=== PATIENT | female | born 1950 | race American Indian/Alaskan Native ===

== ENCOUNTER 2016-09-10 06:48 | Inpatient (IN) | payer BC, MEDICARE ==
[2016-09-10] MEDS ORDERED: NACL 0.9% 1000 ML 1,000 ML ONE ×2 (07:39→15:30)
[2016-09-10] MEDS ORDERED: NACL 0.9% 1000 ML 1,000 ML IV SCH ×2 (08:00→11:30)
[2016-09-10] MEDS ORDERED: NACL 0.9% 500 ML 500 ML IV SCH (08:00)
[2016-09-10] MEDS ORDERED: HEPARIN/NS 5000 UNIT/500ML(CATH LAB) 1,000 ML IR ONE (09:24)
[2016-09-10] MEDS ORDERED: HEPARIN/NS 5000 UNIT/500ML(CATH LAB) 500 ML IR ONE (09:27)
[2016-09-10] MEDS ORDERED: NITROGLYCERIN SYRINGE 3 ML ONE (09:27)
[2016-09-10] MEDS: XYLOCAINE 2% INFILTRATI ONE ×2 (09:33→09:36)
[2016-09-10] MEDS: VERSED ONE ×2 (09:34→09:38)
[2016-09-10] MEDS: SUBLIMAZE ONE ×2 (09:34→09:37)
[2016-09-10] MEDS ORDERED: VERSED ONE (09:40)
[2016-09-10] MEDS ORDERED: SUBLIMAZE ONE (09:40)
[2016-09-10] MEDS: HEPARIN 10,000 UNITS/10 ML ONE ×2 (09:50→10:07)
[2016-09-10] MEDS ORDERED: PLAVIX PO ONE ×4 (11:31→14:31)
[2016-09-10] MEDS ORDERED: MORPHINE IV ONE (11:35)
[2016-09-10] MEDS ORDERED: MORPHINE ONE (11:36)
--- NOTE | 2016-09-10 11:58 | Short Stay Summary ---
Short Stay Documentation Date of service: 09/10/16 - History H&P: obtained from office - Allergies and Medications Current Medications: Allergies No Known Allergies Allergy (Verified 08/11/16 06:45) Home Medications Medication Instructions Recorded Confirmed Last Taken Type Aspirin EC [Aspirin Enteric Coated 81 mg PO DAILY 08/11/16 09/10/16 09/09/16 History TAB] AtorvaSTATin [Lipitor] 40 mg PO HS 08/11/16 09/10/16 09/09/16 History Clopidogrel Bisulfate [Clopidogrel] 75 mg PO DAILY 08/11/16 09/10/16 09/09/16 History Lisinopril/Hydrochlorothiazide 1 tab PO DAILY 08/11/16 09/10/16 09/09/16 History [Lisinopril-Hctz 20-25 mg Tab] Active Medications Aspirin (Halfprin Ec) 81 mg PO DAILY BAR Atorvastatin Calcium (Lipitor) 40 mg PO HS BAR Clopidogrel Bisulfate (Plavix) 75 mg PO DAILY BAR Sodium Chloride (Nacl 0.9% 1000 Ml) 1,000 mls @ 100 mls/hr IV DIRECT BAR Stop: 09/10/16 19:59 Ondansetron HCl (Zofran) 4 mg IV Q8H PRN PRN Reason: N/V unrelieved by Reglan Tramadol HCl (Ultram) 50 mg PO Q4H PRN PRN Reason: Pain, Mild (1-3) - Brief post op/procedure progress note Date of procedure: 09/10/16 Pre-op diagnosis: PVD with claudication - Hospital course Hospital course: The patient is a 66 year old female with known PAD who underwent bilateral common iliac stenting on 08/11/16. Following that procedure, she had improvement in pain in her right leg but still had discomfort in her left leg. She presented on 09/10/16 and underwent peripheral angiogram and GENERAL REPAIRER of the left external iliac by Dr. Conner. She was monitored on telemetry overnight and will be discharged home on 09/11/16 in stable condition. Follow up appointment with Dr. Conner in the [place] office on 09/27/16 at 2:30 pm. - Disposition Condition at discharge: Stable - Discharge Diagnoses (1) PVD (peripheral vascular disease) with claudication Status: Chronic (2) Hyperlipidemia Status: Chronic (3) Hypertension Status: Chronic (4) Tobacco abuse Status: Chronic Short Stay Discharge Plan Activity: advance as tolerated Weight Bearing Status: Weight Bear as Tolerated Diet: low fat, low cholesterol Wound: keep clean and dry Follow up with: PRIMARY CARE, [Primary Care Provider] - 7 Days FAREED CONNER MD [Staff Physician] - 09/27/16 2:30 pm
[2016-09-10] MEDS ORDERED: ZOFRAN ONE (12:49)
[2016-09-10] MEDS: ZOFRAN IV PRN (12:51)
[2016-09-10] MEDS ORDERED: PLAVIX ONE (14:09)
[2016-09-10] MEDS: PLAVIX ONE ×2 (14:35→17:27)
[2016-09-10] MEDS ORDERED: ULTRAM ONE (16:04)
[2016-09-10] MEDS: ULTRAM PO PRN ×2 (16:09→20:29)
--- NOTE | 2016-09-10 16:59 | Cardiac Catherization Report ---
PROCEDURE: Peripheral angiogram of the iliac and SFA and the distal popliteal third-order injection with intervention of the left external iliac, left INJECTION MOLDING ENGINEER, left SFA. HISTORY: This is a 66-year-old -[place] female with hypertension, cholesterol, smoker, who had bilateral common iliac stents done 3 weeks ago presents for followup having left leg pain. On exam, she has decreased pulse on the left common femoral, left groin, and right leg feels much better. 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 1. Procedure was performed via the right common femoral artery, sterile technique, local anesthesia, 5-Vincentian groin sheath inserted, rim catheter was placed across the left common iliac artery. An angiogram was done which showed left common iliac stent patent, left internal iliac diffusely diseased, left external 99%, dissection planes were noted with sluggish flow in the SFA. 2. Then, we used an advantage wire at the SFA and then removed the 5-Vincentian vertebral and 5-Vincentian groin sheath and placed a 7-Vincentian Destination sheath from the right common femoral artery to the left common iliac artery. 3. With the wire retained to increase the flow and there was a dissection plane noted, ballooned common femoral artery and SFA with a 4.0 x 80 balloon and then ballooned that further with a drug-eluting balloon from the common femoral artery to the proximal SFA with a 4.0 x 100. There was a dissection plane, but it was non-flow limiting. There was a small dissection in the profunda that is not flow limiting also. 4. Stented external iliac had a proximal 80% lesion and dissection plane was noted. So using a self-expanding Prot?g? 8.0 x 100 and post-dilated with a 7.0 x 60 x 2 inflations. Excellent angiographic result. No dissection noted. Increased flow, but after removing the SFA wire, there was sluggish flow in the SFA. Rewire the SFA and stented diffusely diseased SFA of 50% to 60% and 80% with a focal area of 90% with a 6.0 x 200 and post-dilated with a 5.0 x 60 x 6 inflations. 5. Repeat angiogram showed excellent angiographic results with good stent appostion of the external iliac, mild dissection in the profunda non flow limiting, no dissection in the INJECTION MOLDING ENGINEER, proximal SFA to distal SFA was well stented with a popliteal patent, anterior tibial patent, peroneal patent, but PTU with diffuse disease. No embolization noted. 6. A 7-Vincentian sheath was removed over a guidewire. A 7-Vincentian short sheath groin sheath was sewn in. There was a small hematoma that was pressed out. SUMMARY: 1. Bilateral common iliac stents patent. 2. Left external iliac 8.0 x 100 self expanding stent protege and post-dilated x 7.0, left INJECTION MOLDING ENGINEER and proximal SFA drug-coated balloon 4.0 x 100. There was a small dissection non flow limiting in the profunda. 3. self expanding protege stent in the proximal to distal SFA with a 6.0 x 200 post-dilated with 5.0 with two-vessel runoff. 4. The patient has a palpable pulse at the end of the case. 5. Post-FORESTRY FARM LABORER treatment and continue IV hydration for renal insufficiency. JOB# [id number] ANA/CASA AMBROCIO
[2016-09-11] MEDS: ULTRAM PO PRN ×2 (05:11→10:14)
[2016-09-11] MEDS: ZOFRAN IV PRN (05:11)
[2016-09-11 07:59] LABS: Basophils % (Auto) 0.3 % (0.0-1.8); Hematocrit 26.8 % (30.3-42.9); Hemoglobin 8.8 gm/dl (10.1-14.3); Mean Corpuscular HGB Conc 33 % (30-34); Mean Corpuscular Hemoglobin 31 pg (28-32); Mean Corpuscular Volume 94 fl (79-97); Platelet Count 243 K/mm3 (140-440); Red Blood Count 2.85 M/mm3 (3.65-5.03); Red Cell Distribution Width 13.7 % (13.2-15.2); White Blood Count 11.2 K/mm3 (4.5-11.0)
[2016-09-11 08:26] LABS: Anion Gap 18 mmol/L; BUN/Creatinine Ratio 22.72; Blood Urea Nitrogen 25 mg/dL (7-17); Calcium 8.8 mg/dL (8.4-10.2); Carbon Dioxide 22 mmol/L (22-30); Chloride 103.5 mmol/L (98-107); Glucose 127 mg/dL (65-100); Potassium 4.2 mmol/L (3.6-5.0); Sodium 139 mmol/L (137-145)
--- NOTE | 2016-09-11 09:45 | Admit Criteria Form ---
[id number] TELEMETRY CARE Telemetry Admission Guidelines (Place 'X' for any and all applicable criteria): Admission to telemetry [A] may be indicated for ANY ONE of the following(1)(2)(3 )(4)(5): [ ]I. Cardiac disease, including ANY ONE of the following (9)(10)(11)(12)(13 ): [ ]a) Postacute IA [ ]b) Low-risk patients with ST-segment elevation IA who have undergone successful percutaneous coronary intervention [ ]c) Unstable angina [ ]d) Suspected IA (until it is ruled out) [ ]e) Post cardiac surgery (first 48 to 72 hours unless complications occur) [ ]f) Acute arrhythmias (including significant tachycardia or bradycardia) [B] [ ]g) Firing of an implantable cardioverter defibrillator [C] [ ]h) Suspected pacemaker or implantable cardioverter defibrillator malfunction (10) [ ]i) New administration or adjustment of an antiarrhythmic drug [D ] [ ]j) Child admitted for acute congestive heart failure [ ]j) Long QT syndrome [ ]k) Advanced heart block (eg, second-degree Mobitz type II, third- degree heart block) [ ]l) Acute myocarditis or pericarditis [ ]m) Short-term (ambulatory or inpatient) monitoring after a cardiac procedure as indicated by ANY ONE of the following [E]: [ ]i) Electrophysiologic studies [ ]ii) Percutaneous coronary intervention with stent placement [ ]iii) Pacemaker placement with cardiac conduction defect [ ]iv) Implantable cardiac defibrillator placement [ ]II. Drug overdose or poisoning with substance that causes arrhythmias or QT prolongation (eg, phenothiazines, sympathomimetic agents, cyclic antidepressants, digitalis, antiarrhythmic drugs)(15) [X ]III. Short-term (ambulatory or inpatient) monitoring after therapeutic or diagnostic procedure requiring conscious sedation or anesthesia (eg, endoscopy, elective cardioversion) [ ]IV. Acute cerebrovascular even[F](18) [ ]V. Massive blood transfusion (eg, at least 10 units of packed red blood cells in 24 hours) [ ]. Variceal bleeding after endoscopy, sclerotherapy, or IV vasopressin [ ]VII. Uncorrected electrolyte abnormalities associated with an increased risk of dangerous arrhythmia [G]; examples include [ ]a) Hyperkalemia with attributable ECG changes [ ]b) Potassium greater than 6.5 mmol/L (mEq/L) in a patient without history of chronic renal disease [ ]c) Prolonged QT attributed to hypokalemia, hypomagnesemia, or hypocalcemia [ ]VIII.Unexplained syncope or other neurologic event suspected of being due to arrhythmia due to a finding that increases risk; examples include(19)(20)(21): [ ]a) High-risk ECG findings (eg, bifascicular block, bradycardia, abnormal QT interval, ventricular pre- excitation) [ ]b) History of previous syncope due to arrhythmia [ ]c) Abnormal ventricular function (eg, reduced ejection fraction ) [ ]d) Exertional or supine syncope [ ]e) Concerning syncope characteristics (eg, sudden loss of consciousness without prodrome) [ ]f) Family history of sudden [ ]g) Use of arrhythmogenic medication [ ]h) Suspected cardiac ischemia [ ]i) Known channelopathy (eg, long QT syndrome, Brugada syndrome, or catecholaminergic paroxysmal ventricular tachycardia) [ ]j) Known structural heart disease (eg, hypertrophic cardiomyopathy , severe valvular disease) [ ]k) Palpitations preceding syncope The original [employer] content created by [employer] has been revised. The portions of the content which have been revised are identified through the use of italic text or in bold, and [facility] has neither reviewed nor approved the modified material. All other unmodified content is copyright [employer]. Please see references footnoted in the original [employer] edition 2016 Admission Criteria Met: Yes <FAREED MAHARAJ Last Filed: 09/12/16 09:11> Admission Criteria Met: Yes
[2016-09-11] MEDS ORDERED: HALFPRIN EC PO SCH (10:00)
[2016-09-11] MEDS ORDERED: PLAVIX PO SCH (10:00)
[2016-09-11 10:06] VITALS: BP 120/79
--- NOTE | 2016-09-11 11:29 | Progress Note ---
Assessment and Plan Patient had CONVENTION PLANNER of the left external iliac to left SFA at see if they patient small hematoma was able pressed out resolved patient had renal sufficiency with IV hydration that resolved patient resulted in anemia hemodilution post procedure patient will hold BP medication at this time will continue aspirin Plavix statin smoking cessation was counseled again and patient will take iron tablets to increase hemoglobin patient follow-up in the office next week patient denies any left leg pain or groin pain no dizziness shortness of breath discussed this in detail with the patient patient's - Patient Problems (1) Tobacco abuse Current Visit: Yes Status: Chronic (2) Hyperlipidemia Current Visit: No Status: Chronic (3) Hypertension Current Visit: No Status: Chronic (4) PVD (peripheral vascular disease) with claudication Current Visit: No Status: Chronic (5) Anemia Current Visit: Yes Status: Chronic Qualifiers: Anemia type: iron deficiency Subjective Date of service: 09/11/16 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 Interval history: pt has no lighheadedness or dizziness and mild groin pain Objective Vital Signs Temp Pulse Pulse Pulse Resp Resp BP 09/11/16 09:00 105 H 09/11/16 08:00 97.6 F 117 H 16 09/11/16 05:48 98 F 116 H 20 09/11/16 05:11 20 09/11/16 00:41 97.6 F 107 H 21 09/10/16 22:00 80 18 09/10/16 21:29 18 09/10/16 20:41 97.9 F 99 H 20 09/10/16 20:29 18 09/10/16 20:23 18 09/10/16 19:44 98 H 09/10/16 17:00 101 H 09/10/16 16:00 101 H 18 164/84 09/10/16 15:45 101 H 18 154/79 09/10/16 15:30 98 F 98 H 17 146/80 09/10/16 15:05 92 H 15 132/73 09/10/16 15:00 96 H 16 98/69 09/10/16 14:55 96 H 16 98/69 09/10/16 14:50 100 H 22 96/56 09/10/16 14:49 99 H 20 80/47 09/10/16 14:45 108 H 20 100/58 09/10/16 14:40 100 H 20 152/85 09/10/16 14:30 100 H 20 152/85 09/10/16 14:15 98 H 15 09/10/16 14:00 103 H 18 124/72 09/10/16 13:45 100 H 20 138/81 09/10/16 13:15 104 H 20 136/89 09/10/16 12:45 100 H 12 173/99 09/10/16 12:30 103 H 14 132/78 09/10/16 12:11 20 09/10/16 12:00 103 H 14 167/88 09/10/16 11:45 100 H 16 167/88 09/10/16 11:41 18 09/10/16 11:30 90 18 157/92 BP Pulse Ox 09/11/16 09:00 09/11/16 08:00 120/79 99 09/11/16 05:48 132/75 95 09/11/16 05:11 09/11/16 00:41 154/82 100 09/10/16 22:00 09/10/16 21:29 09/10/16 20:41 153/77 94 09/10/16 20:29 09/10/16 20:23 09/10/16 19:44 09/10/16 17:00 09/10/16 16:00 99 09/10/16 15:45 100 09/10/16 15:30 100 09/10/16 15:05 100 09/10/16 15:00 100 09/10/16 14:55 100 09/10/16 14:50 100 09/10/16 14:49 100 09/10/16 14:45 100 09/10/16 14:40 98 09/10/16 14:30 98 09/10/16 14:15 100 09/10/16 14:00 100 09/10/16 13:45 98 09/10/16 13:15 99 09/10/16 12:45 100 09/10/16 12:30 98 09/10/16 12:11 09/10/16 12:00 97 09/10/16 11:45 100 09/10/16 11:41 09/10/16 11:30 97 - Physical Examination General: Appears Well, No Apparent Distress HEENT: Positive: PERRL Neck: Positive: neck supple Cardiac: Positive: Reg Rate and Rhythm Lungs: Positive: clear to auscultation Neuro: Positive: Grossly Intact Abdomen: Positive: Soft /Rectal: Normal Prostate, No Masses Skin: Incision: Cardiac Cath Site (no hematoma mild bruising) Musculoskeletal: No Fluid Collection, No Pain, Normal Range of Motion Gait: Normal Gait Extremities: - Labs and Meds CBC 09/11/16 Range/Units 07:15 WBC 11.2 H (4.5-11.0) K/mm3 RBC 2.85 L (3.65-5.03) M/mm3 Hgb 8.8 L (10.1-14.3) gm/dl Hct 26.8 L (30.3-42.9) % Plt Count 243 (140-440) K/mm3 Lymph # 1.7 (1.2-5.4) K/mm3 Whitman # 0.9 H (0.0-0.8) K/mm3 Eos # 0.0 (0.0-0.4) K/mm3 Baso # 0.0 (0.0-0.1) K/mm3 Comprehensive Metabolic Panel 09/11/16 Range/Units 07:15 Sodium 139 (137-145) mmol/L Potassium 4.2 (3.6-5.0) mmol/L Chloride 103.5 (98-107) mmol/L Carbon Dioxide 22 (22-30) mmol/L BUN 25 H (7-17) mg/dL Creatinine 1.1 (0.7-1.2) mg/dL Glucose 127 H (65-100) mg/dL Calcium 8.8 (8.4-10.2) mg/dL - Telemetry EKG Rhythm: Sinus Rhythm
[2016-09-11] MEDS ORDERED: PLAVIX PO ONE (14:31)
== END 2016-09-11 12:41 | disposition home or self-care (01) | DRG 253 ==
LOC: OPU 06:48 → 4A 11:28
PROVIDERS: ADMIT Internal Medicine; ATTEND Internal Medicine
PROC: 047L3Z1 Dilation of Left Femoral Artery using Drug-Coated Balloon, Percutaneous Approach (ICD-10-PCS; principal; 2016-09-10)
PROC: B41G1ZZ Fluoroscopy of Left Lower Extremity Arteries using Low Osmolar Contrast (ICD-10-PCS; 2016-09-10)
DX: I73.9 Peripheral vascular disease, unspecified (principal); R71.0 Precipitous drop in hematocrit; E78.5 Hyperlipidemia, unspecified; N28.9 Disorder of kidney and ureter, unspecified; I10 Essential (primary) hypertension; F17.200 Nicotine dependence, unspecified, uncomplicated; Z71.6 Tobacco abuse counseling
CPT/HCPCS: 36415; 37221; 37226; 75710; 80048; 85025; 85347; 85730; 96360; 96361; 96374; 96375; A9270-GY; C1725; C1769; C1876; C1887; C2623; J1644; J2250; J2270; J2405; J3010; J7030; Q9967

== ENCOUNTER 2016-11-07 07:52 | Inpatient (IN) | payer MEDICARE, OTHER ==
[2016-11-07 08:54] LABS: BUN/Creatinine Ratio 13.33; Calcium 8.7 mg/dL (8.4-10.2); Chloride 110.9 mmol/L (98-107); Potassium 3.4 mmol/L (3.6-5.0)
[2016-11-07 09:07] LABS: Basophils % (Auto) 0.5 % (0.0-1.8); Eosinophils % (Auto) 0.7 % (0.0-4.3); Hematocrit 20.2 % (30.3-42.9); Hemoglobin 6.6 gm/dl (10.1-14.3); Mean Corpuscular HGB Conc 33 % (30-34); Mean Corpuscular Hemoglobin 30 pg (28-32); Mean Corpuscular Volume 93 fl (79-97); Platelet Count 343 K/mm3 (140-440); Red Blood Count 2.17 M/mm3 (3.65-5.03); White Blood Count 9.1 K/mm3 (4.5-11.0)
--- NOTE | 2016-11-07 09:37 | Emergency Department Report ---
ED Chest Pain HPI - General Chief Complaint: Chest Pain Stated Complaint: CHEST PAIN Time Seen by Provider: 11/07/16 09:35 Source: patient Mode of arrival: Ambulatory Limitations: No Limitations - History of Present Illness Initial Comments: She states for the last at least one week she has developed discomfort in her chest which occurs categorically about 10 minutes after eating. The pain is in the subxiphoid area. We occurs when she eats. It is nonexertional and nonpleuritic. Patient states that she is had no prior workup for coronary artery disease. She's never had an endoscopy. She does have a history of prior angioplasty for peripheral vascular disease in her legs. She is having no chest pain at the current time. MD Complaint: chest pain -: week(s) Onset: after eating Pain Location: substernal Pain Radiation: none Severity: moderate Quality: dull Consistency: now resolved Improves With: nothing Worsens With: eating re: denies: nausea, vomting, diaphoresis, dyspnea, sense of impending doom Other Symptoms: denies: cough, fever, syncope - Related Data Home Medications Medication Instructions Recorded Confirmed Last Taken Aspirin EC [Aspirin Enteric Coated 81 mg PO DAILY 08/11/16 11/07/16 09/09/16 TAB] AtorvaSTATin [Lipitor] 40 mg PO HS 08/11/16 11/07/16 09/09/16 Clopidogrel Bisulfate [Clopidogrel] 75 mg PO DAILY 08/11/16 11/07/16 09/09/16 Allergies Allergy/AdvReac Type Severity Reaction Status Date / Time No Known Allergies Allergy Verified 08/11/16 06:45 RITU score - Ritu Score Age > 65: (0) No Aspirin use within the Past 7 Days: (0) No 3 or more CAD Risk Factors: (1) Yes 2 or more Angina events in past 24 hrs: (0) No Known CAD with more than 50% Stenosis: (0) No Elevated Cardiac Markers: (0) No ST Deviation Greater than 0.5mm: (0) No RITU Score: 1 ED Review of Systems ROS: Stated complaint: CHEST PAIN Other details as noted in HPI Constitutional: weakness. denies: chills, fever Eyes: denies: eye pain, eye discharge, vision change ENT: denies: ear pain, throat pain Respiratory: SOB with exertion. denies: cough, shortness of breath, wheezing Cardiovascular: as per HPI, chest pain. denies: palpitations Endocrine: no symptoms reported Gastrointestinal: as per HPI. denies: abdominal pain, nausea, diarrhea Genitourinary: denies: urgency, dysuria, discharge Musculoskeletal: denies: back pain, joint swelling, arthralgia Skin: denies: rash, lesions Neurological: denies: headache, weakness, paresthesias Psychiatric: denies: anxiety, depression Hematological/Lymphatic: denies: easy bleeding, easy bruising ED Past Medical Hx - Past Medical History Previous Medical History?: Yes Hx Hypertension: Yes Hx GERD: Yes - Surgical History Past Surgical History?: Yes Additional Surgical History: angioplasty - Social History Smoking Status: Current Every Day Smoker Substance Use Type: None - Medications Home Medications: Home Medications Medication Instructions Recorded Confirmed Last Taken Type Aspirin EC [Aspirin Enteric Coated 81 mg PO DAILY 08/11/16 11/07/16 09/09/16 History TAB] AtorvaSTATin [Lipitor] 40 mg PO HS 08/11/16 11/07/16 09/09/16 History Clopidogrel Bisulfate [Clopidogrel] 75 mg PO DAILY 08/11/16 11/07/16 09/09/16 History ED Physical Exam - General Limitations: No Limitations General appearance: alert, in no apparent distress - Head Head exam: Present: atraumatic, normocephalic. Absent: normal inspection - Eye Eye exam: Present: normal appearance, PERRL, EOMI. Absent: scleral icterus - ENT ENT exam: Present: mucous membranes moist - Neck Neck exam: Present: normal inspection - Respiratory Respiratory exam: Present: normal lung sounds bilaterally. Absent: respiratory distress - Cardiovascular Cardiovascular Exam: Present: regular rate, normal rhythm. Absent: systolic murmur, diastolic murmur, rubs, gallop - GI/Abdominal GI/Abdominal exam: Present: soft, normal bowel sounds. Absent: distended, tenderness, guarding, rebound, rigid - Extremities Exam Extremities exam: Present: normal inspection, full ROM, normal capillary refill. Absent: tenderness, pedal edema, joint swelling, calf tenderness - Back Exam Back exam: Present: normal inspection - Neurological Exam Neurological exam: Present: alert, oriented X3, CN II-XII intact. Absent: motor sensory deficit - Psychiatric Psychiatric exam: Present: normal affect, normal mood - Skin Skin exam: Present: warm, dry, intact, normal color. Absent: rash ED Course Vital Signs 11/07/16 11/07/16 11/07/16 08:04 08:59 09:00 Temperature 97.8 F Pulse Rate 109 H 113 H Respiratory 16 31 H Rate Blood Pressure 131/74 158/74 O2 Sat by Pulse 100 99 Oximetry 11/07/16 11/07/16 11/07/16 09:07 09:11 11:52 Temperature 98.4 F Pulse Rate 105 H 97 H Respiratory 16 10 L 14 Rate Blood Pressure 158/74 107/65 O2 Sat by Pulse 100 100 Oximetry 11/07/16 11/07/16 11/07/16 12:00 12:41 13:05 Temperature 98.3 F 98.4 F 98.4 F Pulse Rate 93 H 87 90 Respiratory 15 13 20 Rate Blood Pressure 134/65 119/48 123/53 O2 Sat by Pulse 97 100 100 Oximetry 11/07/16 11/07/16 13:32 15:00 Temperature 98.4 F 98.4 F Pulse Rate 94 H 95 H Respiratory 16 11 L Rate Blood Pressure 133/53 146/82 O2 Sat by Pulse 100 100 Oximetry - Reevaluation(s) Reevaluation #1: A GI and cardiac consultation was obtained. The patient was transfused. She was admitted by Dr. eMdina to the hospitalist service. Further care per hospitalist service and consultants. She was given Protonix. I avoided anticoagulants considering her GI history and low hemoglobin. 11/07/16 16:38 Reevaluation #2: Patient was transfused 2 units by me. She had no subsequent chest discomfort. 11/07/16 16:39 ED Medical Decision Making - Lab Data Result diagrams: 11/07/16 08:20 11/07/16 08:20 Laboratory Results - last 24 hr 11/07/16 11/07/16 08:20 08:20 WBC 9.1 RBC 2.17 L Hgb 6.6 L Hct 20.2 L MCV 93 MCH 30 MCHC 33 RDW 14.0 Plt Count 343 Lymph % (Auto) 37.2 H Wood[place] % (Auto) 5.8 Eos % (Auto) 0.7 Baso % (Auto) 0.5 Lymph # 3.4 [place] # 0.5 Eos # 0.1 Baso # 0.0 Seg Neutrophils % 55.8 Seg Neutrophils # 5.1 Sodium 145 Potassium 3.4 L Chloride 110.9 H Carbon Dioxide 20 L Anion Gap 18 BUN 16 Creatinine 1.2 Estimated GFR 55 BUN/Creatinine Ratio 13.33 Glucose 102 H Calcium 8.7 Troponin T 0.319 H* Triglycerides 82 Cholesterol 147 LDL Cholesterol Direct 82 HDL Cholesterol 49 Cholesterol/HDL Ratio 3.00 Critical Care Time: Yes Critical care time in (mins) excluding proc time.: 40 Critical care attestation.: If time is entered above; I have spent that time in minutes in the direct care of this critically ill patient, excluding procedure time. ED Disposition Clinical Impression: Elevated troponin, Symptomatic anemia Chest pain Qualifiers: Chest pain type: unspecified Qualified Code(s): R07.9 - Chest pain, unspecified Disposition: OP ADMITTED IP TO THIS HOSP Is pt being admited?: Yes Does the pt Need Aspirin: Yes Condition: Stable Time of Disposition: 16:40
[2016-11-07] MEDS ORDERED: NACL 0.9% 500 ML 500 ML IV ONE (09:42)
[2016-11-07] MEDS ORDERED: PROTONIX IV ONE ×2 (09:45→09:53)
[2016-11-07 10:28] LABS: INR 1.04 (0.87-1.13)
[2016-11-07 10:29] LABS: Partial Thromboplastin Time 28.2 Sec. (24.2-36.6)
[2016-11-07 10:43] LABS: Alanine Aminotransferase 11 units/L (7-56); Albumin 3.9 g/dL (3.9-5); Albumin/Globulin Ratio 1.6 %; Alkaline Phosphatase 85 units/L (35-129); Bilirubin,Total < 0.2 mg/dL (0.1-1.2); Iron 24 ug/dL (37-170); Magnesium 2.6 mg/dL (1.7-2.3); Total Iron Binding Capacity 263 mcg/dL (250-450); Total Protein 6.4 g/dL (6.3-8.2)
[2016-11-07 10:44] LABS: Bilirubin,Direct < 0.2 mg/dL (0-0.2)
--- NOTE | 2016-11-07 11:11 | History and Physical Report ---
History of Present Illness Date of examination: 11/07/16 History of present illness: She states for the last at least one week she has developed discomfort in her chest which occurs categorically about 10 minutes after eating. The pain is in the subxiphoid area. We occurs when she eats. It is nonexertional and nonpleuritic. Patient states that she is had no prior workup for coronary artery disease. She's never had an endoscopy. She does have a history of prior angioplasty for peripheral vascular disease in her legs. She is having no chest pain at the current time. Past History Past Medical History: CAD, hyperlipidemia, PVD Medications and Allergies Allergies Allergy/AdvReac Type Severity Reaction Status Date / Time No Known Allergies Allergy Verified 08/11/16 06:45 Home Medications Medication Instructions Recorded Confirmed Last Taken Type Aspirin EC [Aspirin Enteric Coated 81 mg PO DAILY 08/11/16 11/07/16 09/09/16 History TAB] AtorvaSTATin [Lipitor] 40 mg PO HS 08/11/16 11/07/16 09/09/16 History Clopidogrel Bisulfate [Clopidogrel] 75 mg PO DAILY 08/11/16 11/07/16 09/09/16 History Review of Systems Constitutional: fatigue, weakness Cardiovascular: chest pain Exam - Constitutional Vitals: Temp Pulse Resp BP Pulse Ox 97.8 F 105 H 10 L 158/74 100 11/07/16 08:04 11/07/16 09:11 11/07/16 09:11 11/07/16 09:11 11/07/16 09:11 General appearance: Present: no acute distress - EENT Eyes: Present: PERRL, EOM intact ENT: hearing intact, clear oral mucosa - Neck Neck: Present: supple, normal ROM - Respiratory Respiratory effort: normal Respiratory: bilateral: CTA - Cardiovascular Rhythm: regular Heart Sounds: Present: S1 & S2 - Extremities Extremities: no ischemia, No edema - Abdominal General gastrointestinal: Present: soft, non-tender, non-distended, normal bowel sounds - Musculoskeletal Musculoskeletal: strength equal bilaterally - Psychiatric Psychiatric: appropriate mood/affect, intact judgment & insight - Neurologic Neurologic: CNII-XII intact, moves all extremities Results - Labs CBC & Chem 7: 11/07/16 08:20 11/07/16 08:20 Labs: Laboratory Last Values WBC 9.1 K/mm3 (4.5-11.0) 11/07/16 08:20 RBC 2.17 M/mm3 (3.65-5.03) L 11/07/16 08:20 Hgb 6.6 gm/dl (10.1-14.3) L 11/07/16 08:20 Hct 20.2 % (30.3-42.9) L 11/07/16 08:20 MCV 93 fl (79-97) 11/07/16 08:20 MCH 30 pg (28-32) 11/07/16 08:20 MCHC 33 % (30-34) 11/07/16 08:20 RDW 14.0 % (13.2-15.2) 11/07/16 08:20 Plt Count 343 K/mm3 (140-440) 11/07/16 08:20 Lymph % (Auto) 37.2 % (13.4-35.0) H 11/07/16 08:20 [place] % (Auto) 5.8 % (0.0-7.3) 11/07/16 08:20 Eos % (Auto) 0.7 % (0.0-4.3) 11/07/16 08:20 Baso % (Auto) 0.5 % (0.0-1.8) 11/07/16 08:20 Lymph # 3.4 K/mm3 (1.2-5.4) 11/07/16 08:20 [place] # 0.5 K/mm3 (0.0-0.8) 11/07/16 08:20 Eos # 0.1 K/mm3 (0.0-0.4) 11/07/16 08:20 Baso # 0.0 K/mm3 (0.0-0.1) 11/07/16 08:20 Seg Neutrophils % 55.8 % (40.0-70.0) 11/07/16 08:20 Seg Neutrophils # 5.1 K/mm3 (1.8-7.7) 11/07/16 08:20 PT 13.5 Sec. (12.2-14.9) 11/07/16 10:00 INR 1.04 (0.87-1.13) 11/07/16 10:00 APTT 28.2 Sec. (24.2-36.6) 11/07/16 10:00 Sodium 145 mmol/L (137-145) 11/07/16 08:20 Potassium 3.4 mmol/L (3.6-5.0) L 11/07/16 08:20 Chloride 110.9 mmol/L (98-107) H 11/07/16 08:20 Carbon Dioxide 20 mmol/L (22-30) L 11/07/16 08:20 Anion Gap 18 mmol/L 11/07/16 08:20 BUN 16 mg/dL (7-17) 11/07/16 08:20 Creatinine 1.2 mg/dL (0.7-1.2) 11/07/16 08:20 Estimated GFR 55 ml/min 11/07/16 08:20 BUN/Creatinine Ratio 13.33 % 11/07/16 08:20 Glucose 102 mg/dL (65-100) H 11/07/16 08:20 Calcium 8.7 mg/dL (8.4-10.2) 11/07/16 08:20 Magnesium 2.6 mg/dL (1.7-2.3) H 11/07/16 10:00 Iron 24 ug/dL (37-170) L 11/07/16 10:00 TIBC 263 mcg/dL (250-450) 11/07/16 10:00 Total Bilirubin < 0.2 mg/dL (0.1-1.2) 11/07/16 10:00 Direct Bilirubin < 0.2 mg/dL (0-0.2) 11/07/16 10:00 AST 24 units/L (5-40) 11/07/16 10:00 ALT 11 units/L (7-56) 11/07/16 10:00 Alkaline Phosphatase 85 units/L (35-129) 11/07/16 10:00 Troponin T 0.345 ng/mL (0.00-0.029) H* 11/07/16 10:00 NT-Pro-B Natriuret Pep 1652 pg/mL (0-900) H 11/07/16 10:00 Total Protein 6.4 g/dL (6.3-8.2) 11/07/16 10:00 Albumin 3.9 g/dL (3.9-5) 11/07/16 10:00 Albumin/Globulin Ratio 1.6 % 11/07/16 10:00 Triglycerides 82 mg/dL (2-149) 11/07/16 08:20 Cholesterol 147 mg/dL (50-199) 11/07/16 08:20 LDL Cholesterol Direct 82 mg/dL (50-130) 11/07/16 08:20 HDL Cholesterol 49 mg/dL (40-59) 11/07/16 08:20 Cholesterol/HDL Ratio 3.00 % 11/07/16 08:20 Assessment and Plan - Patient Problems (1) NSTEMI (non-ST elevated myocardial infarction) Current Visit: Yes Status: Acute Plan to address problem: Cardiology consult, Hold ASA secondary to GI bleed, Beta-blockers, Admit to Tele , Cath? (2) Symptomatic anemia Current Visit: Yes Status: Acute Plan to address problem: GI consult, Follow CBC, Transfuse PRBC
--- NOTE | 2016-11-07 11:35 | Consultation ---
History of Present Illness Consult date: 11/07/16 Requesting physician: INDY GARCIA History of present illness: This is a 66-year-old female with history of peripheral vascular disease with stenting in August and September of the right iliac and left SFA patient has no more leg pains has history of hypertension hyperlipidemia was anemic postprocedure is been treating with iron tablets. patient's having black stools thought it was the iron tablets but last few days been having epigastric discomfort worse with eating with some nausea and vomiting. Patient denies any exertional chest pain or shortness of breath patient quit smoking a few weeks ago. Patient denies any syncopal type episodes or palpitations or fever or chills Past History Past Medical History: hypertension, hyperlipidemia, other (pad right iliac stent and left sfa stent 09/2016) Past Surgical History: Other (pad stent in iliac and left sfa) Social history: smoking (quit few weeks ago) Family history: no significant family history Medications and Allergies Allergies Allergy/AdvReac Type Severity Reaction Status Date / Time No Known Allergies Allergy Verified 08/11/16 06:45 Home Medications Medication Instructions Recorded Confirmed Last Taken Type Aspirin EC [Aspirin Enteric Coated 81 mg PO DAILY 08/11/16 11/07/16 09/09/16 History TAB] AtorvaSTATin [Lipitor] 40 mg PO HS 08/11/16 11/07/16 09/09/16 History Clopidogrel Bisulfate [Clopidogrel] 75 mg PO DAILY 08/11/16 11/07/16 09/09/16 History Active Meds: Active Medications Aspirin (Halfprin Ec) 81 mg PO DAILY BAR Atorvastatin Calcium (Lipitor) 40 mg PO HS [facility] Review of Systems All systems: negative (as per the HPI) Physical Examination Vital Signs Temp Pulse Resp BP Pulse Ox 97.8 F 109 H 16 131/74 100 11/07/16 08:04 11/07/16 08:04 11/07/16 08:04 11/07/16 08:04 11/07/16 08:04 General appearance: no acute distress, well-nourished HEENT: Positive: PERRL, Mucus Membranes Moist Neck: Positive: neck supple, trachea midline Cardiac: Positive: Reg Rate and Rhythm, S1/S2. Negative: Audible Murmur Lungs: Positive: clear to auscultation, Normal Breath Sounds Neuro: Positive: Grossly Intact Abdomen: Positive: Soft, Active Bowel Sounds, Tender (epigastric). Negative: Distended Female genitourinary: deferred Skin: Positive: Clear Incision: Cardiac Cath Site Musculoskeletal: No Pain, Normal Range of Motion Extremities: Present: normal. Absent: edema Results 11/07/16 08:20 11/07/16 08:20 Cardiac Enzymes 11/07/16 Range/Units 10:00 AST 24 (5-40) units/L Coagulation 11/07/16 Range/Units 10:00 PT 13.5 (12.2-14.9) Sec. INR 1.04 (0.87-1.13) APTT 28.2 (24.2-36.6) Sec. Lipids 11/07/16 Range/Units 08:20 Triglycerides 82 (2-149) mg/dL Cholesterol 147 (50-199) mg/dL HDL Cholesterol 49 (40-59) mg/dL Cholesterol/HDL Ratio 3.00 % CBC 11/07/16 Range/Units 08:20 WBC 9.1 (4.5-11.0) K/mm3 RBC 2.17 L (3.65-5.03) M/mm3 Hgb 6.6 L (10.1-14.3) gm/dl Hct 20.2 L (30.3-42.9) % Plt Count 343 (140-440) K/mm3 Lymph # 3.4 (1.2-5.4) K/mm3 [place] # 0.5 (0.0-0.8) K/mm3 Eos # 0.1 (0.0-0.4) K/mm3 Baso # 0.0 (0.0-0.1) K/mm3 Comprehensive Metabolic Panel 11/07/16 11/07/16 Range/Units 08:20 10:00 Sodium 145 (137-145) mmol/L Potassium 3.4 L (3.6-5.0) mmol/L Chloride 110.9 H (98-107) mmol/L Carbon Dioxide 20 L (22-30) mmol/L BUN 16 (7-17) mg/dL Creatinine 1.2 (0.7-1.2) mg/dL Glucose 102 H (65-100) mg/dL Calcium 8.7 (8.4-10.2) mg/dL Direct Bilirubin < 0.2 (0-0.2) mg/dL AST 24 (5-40) units/L ALT 11 (7-56) units/L Alkaline Phosphatase 85 (35-129) units/L Total Protein 6.4 (6.3-8.2) g/dL Albumin 3.9 (3.9-5) g/dL - Imaging and Cardiology Echo: report reviewed (06/2016 normal LV function no significant regurgitations) EKG interpretations - Telemetry EKG Rhythm: Sinus Tachycardia (sinus tachycardia [address]-T abnormalities) Assessment and Plan Anemia from GI bleeding Atypical chest pain nstemi type 2 from anemia pad chol Recommend patient's chest pain is atypical gastric in nature patient has normal function echocardiogram EKG is no dynamic EKG changes patient CK and MB are negative with abnormal troponin secondary to mismatch will trend her troponins in view of recent normal LV function cardiac no shortness breath or chest pain on exertion, patient has no cardiac contraindication for EGD in a.m. hold aspirin Plavix patient's on Protonix discussed this with GI and with the patient patient's family will trend troponins and patient will receive 3 units of packed RBC cells
[2016-11-07] MEDS ORDERED: DULCOLAX PR PRN (11:45)
[2016-11-07] MEDS ORDERED: PERCOCET 5/325 PO PRN (11:45)
[2016-11-07] MEDS ORDERED: TYLENOL PO PRN (11:45)
[2016-11-07] MEDS ORDERED: MILK OF MAGNESIA PO PRN (11:45)
[2016-11-07] MEDS ORDERED: MORPHINE IV PRN (11:45)
[2016-11-07] MEDS ORDERED: ZOFRAN IV PRN (11:45)
[2016-11-07] MEDS ORDERED: NACL 0.9% 1000 ML 1,000 ML IV SCH (12:00)
[2016-11-07] MEDS ORDERED: HALFPRIN EC PO SCH (12:00)
[2016-11-07] MEDS: PEPCID PO SCH ×2 (12:15→21:13)
--- NOTE | 2016-11-07 12:46 | Consultation ---
INDICATION: 1. Anemia. 2. Epigastric pain. HISTORY OF PRESENT ILLNESS: The patient is a 66-year-old black female who has been seen for possible GI bleed. The patient reports that she is currently on aspirin and Plavix. The patient reports 3 days of epigastric pain. She reports no nausea or vomiting. She reports recent dark stools, but that she was on iron for anemia. She reports no loss. She reports no diarrhea or constipation. Denies any weight loss. The patient subsequently came to the Emergency Room, noted to be significantly anemic, admitted and GI consulted. No other specific problems or complaints. PAST MEDICAL HISTORY: 1. Hypertension. 2. Reportedly, coronary artery disease. 3. GERD. MEDICATIONS: See chart. ALLERGIES: No known drug allergies. SOCIAL HISTORY: Denies alcohol, tobacco, or drug abuse. FAMILY HISTORY: negative colon cancer. REVIEW OF SYSTEMS: GENERAL: Reports mild weakness. HEENT: No visual complaints or tinnitus. PULMONARY: No shortness of breath. CARDIOVASCULAR: No chest pain. GASTROINTESTINAL: Reports epigastric pain. All points of 13-point review of systems otherwise negative. PHYSICAL EXAMINATION: VITAL SIGNS: Temperature of 97.8, pulse 99, respirations 16, blood pressure 131/70. GENERAL: Fairly nourished, but slightly thin black female in no acute distress. HEENT: Pupils equal, round, reactive to light and accommodation. Extraocular movements intact. PULMONARY: Clear to auscultation bilaterally. CARDIOVASCULAR: Regular rate and rhythm. Normal S1, S2. ABDOMEN: Positive bowel sounds, soft. SKIN: No obvious rashes. LABORATORY DATA: Pertinent for white count of 9.1, hemoglobin and hematocrit of 6.6 and 20.2, platelet count of 243. Chem-7 within normal limits. Troponin of 0.319. ASSESSMENT AND PLAN: A 66-year-old black female presents with epigastric chest pain with noted significant anemia. Possibility of peptic ulcer disease versus gastritis. The patient will require EGD. The patient has a positive troponin and will need cardiology clearance prior to procedure. Management is noted below. PLAN: 1. PPI IV b.i.d. 2. Follow hematocrit and transfuse as needed. 3. We will recommend Cardiology consult. 4. EGD when cleared by Cardiology. JOB# [id number] CAB/NTS MTDD
[2016-11-07 18:12] LABS: Creatine Kinase MB 15.3 ng/mL (0.0-4.0)
[2016-11-07 23:52] LABS: Creatine Kinase MB 9.9 ng/mL (0.0-4.0)
[2016-11-08 05:49] LABS: Basophils % (Auto) 0.3 % (0.0-1.8); Hematocrit 27.1 % (30.3-42.9); Hemoglobin 9.1 gm/dl (10.1-14.3); Mean Corpuscular HGB Conc 34 % (30-34); Mean Corpuscular Hemoglobin 30 pg (28-32); Mean Corpuscular Volume 91 fl (79-97); Platelet Count 285 K/mm3 (140-440); Red Blood Count 2.99 M/mm3 (3.65-5.03); Red Cell Distribution Width 14.3 % (13.2-15.2); White Blood Count 8.8 K/mm3 (4.5-11.0)
[2016-11-08 05:57] LABS: Creatine Kinase MB 7.8 ng/mL (0.0-4.0)
[2016-11-08 06:01] LABS: Alanine Aminotransferase 12 units/L (7-56); Albumin 3.2 g/dL (3.9-5); Albumin/Globulin Ratio 1.2 %; Alkaline Phosphatase 86 units/L (35-129); Anion Gap 16 mmol/L; BUN/Creatinine Ratio 13.63; Bilirubin,Total < 0.2 mg/dL (0.1-1.2); Blood Urea Nitrogen 15 mg/dL (7-17); Calcium 8.5 mg/dL (8.4-10.2); Carbon Dioxide 22 mmol/L (22-30); Chloride 110.7 mmol/L (98-107); Glucose 95 mg/dL (65-100); Sodium 144 mmol/L (137-145); Total Protein 5.9 g/dL (6.3-8.2)
[2016-11-08 06:12] LABS: Potassium 4.2 mmol/L (3.6-5.0)
--- NOTE | 2016-11-08 07:30 | XRay Report ---
AP CHEST: HISTORY: chest pain AP view of the chest demonstrates a normal mediastinal and cardiac contour with clear lungs and normal bony and soft tissue structures. IMPRESSION: Unremarkable AP chest.
--- NOTE | 2016-11-08 07:45 | Progress Note ---
Assessment and Plan - Patient Problems (1) NSTEMI (non-ST elevated myocardial infarction) Current Visit: Yes Status: Acute Plan to address problem: Cardiology workup in progress, Hold ASA secondary to GI bleed, continue beta blockers (2) Symptomatic anemia Current Visit: Yes Status: Acute Plan to address problem: GI consulted and patient scheduled for EGD today, Follow CBC, patient was transfused 2 units of packed red blood cells History Interval history: Patient is awake alert lying in bed states that she feels fine this morning. She denies any chest pain Hospitalist Physical - Constitutional Vitals: Temp Pulse Resp BP Pulse Ox 98.6 F 86 18 141/74 98 11/08/16 06:00 11/08/16 06:00 11/08/16 06:00 11/08/16 06:00 11/08/16 07:32 General appearance: Present: no acute distress - EENT Eyes: Present: PERRL, EOM intact ENT: hearing intact, clear oral mucosa - Neck Neck: Present: supple, normal ROM - Respiratory Respiratory effort: normal Respiratory: bilateral: CTA - Cardiovascular Rhythm: regular Heart Sounds: Present: S1 & S2 - Extremities Extremities: no ischemia, No edema - Abdominal General gastrointestinal: soft, non-tender, non-distended, normal bowel sounds - Psychiatric Psychiatric: appropriate mood/affect, intact judgment & insight - Neurologic Neurologic: CNII-XII intact, moves all extremities Results - Labs CBC & Chem 7: 11/08/16 04:22 11/08/16 04:22 Labs: Laboratory Last Values WBC 8.8 K/mm3 (4.5-11.0) 11/08/16 04:22 RBC 2.99 M/mm3 (3.65-5.03) L 11/08/16 04:22 Hgb 9.1 gm/dl (10.1-14.3) L 11/08/16 04:22 Hct 27.1 % (30.3-42.9) L D 11/08/16 04:22 MCV 91 fl (79-97) 11/08/16 04:22 MCH 30 pg (28-32) 11/08/16 04:22 MCHC 34 % (30-34) 11/08/16 04:22 RDW 14.3 % (13.2-15.2) 11/08/16 04:22 Plt Count 285 K/mm3 (140-440) 11/08/16 04:22 Lymph % (Auto) 34.4 % (13.4-35.0) 11/08/16 04:22 [place] % (Auto) 6.8 % (0.0-7.3) 11/08/16 04:22 Eos % (Auto) 1.0 % (0.0-4.3) 11/08/16 04:22 Baso % (Auto) 0.3 % (0.0-1.8) 11/08/16 04:22 Lymph # 3.0 K/mm3 (1.2-5.4) 11/08/16 04:22 [place] # 0.6 K/mm3 (0.0-0.8) 11/08/16 04:22 Eos # 0.1 K/mm3 (0.0-0.4) 11/08/16 04:22 Baso # 0.0 K/mm3 (0.0-0.1) 11/08/16 04:22 Seg Neutrophils % 57.5 % (40.0-70.0) 11/08/16 04:22 Seg Neutrophils # 5.1 K/mm3 (1.8-7.7) 11/08/16 04:22 PT 13.5 Sec. (12.2-14.9) 11/07/16 10:00 INR 1.04 (0.87-1.13) 11/07/16 10:00 APTT 28.2 Sec. (24.2-36.6) 11/07/16 10:00 Sodium 144 mmol/L (137-145) 11/08/16 04:22 Potassium 4.2 mmol/L (3.6-5.0) D 11/08/16 04:22 Chloride 110.7 mmol/L (98-107) H 11/08/16 04:22 Carbon Dioxide 22 mmol/L (22-30) 11/08/16 04:22 Anion Gap 16 mmol/L 11/08/16 04:22 BUN 15 mg/dL (7-17) 11/08/16 04:22 Creatinine 1.1 mg/dL (0.7-1.2) 11/08/16 04:22 Estimated GFR > 60 ml/min 11/08/16 04:22 BUN/Creatinine Ratio 13.63 % 11/08/16 04:22 Glucose 95 mg/dL (65-100) 11/08/16 04:22 Calcium 8.5 mg/dL (8.4-10.2) 11/08/16 04:22 Magnesium 2.6 mg/dL (1.7-2.3) H 11/07/16 10:00 Iron 24 ug/dL (37-170) L 11/07/16 10:00 TIBC 263 mcg/dL (250-450) 11/07/16 10:00 Total Bilirubin < 0.2 mg/dL (0.1-1.2) 11/08/16 04:22 Direct Bilirubin < 0.2 mg/dL (0-0.2) 11/07/16 10:00 AST 23 units/L (5-40) 11/08/16 04:22 ALT 12 units/L (7-56) 11/08/16 04:22 Alkaline Phosphatase 86 units/L (35-129) 11/08/16 04:22 Total Creatine Kinase 222 units/L (30-135) H 11/07/16 23:18 CK-MB (CK-2) 7.8 ng/mL (0.0-4.0) H 11/08/16 04:22 CK-MB (CK-2) Rel Index 4.4 (0-4) H 11/07/16 23:18 Troponin T 0.368 ng/mL (0.00-0.029) H* 11/08/16 04:22 NT-Pro-B Natriuret Pep 1652 pg/mL (0-900) H 11/07/16 10:00 Total Protein 5.9 g/dL (6.3-8.2) L 11/08/16 04:22 Albumin 3.2 g/dL (3.9-5) L 11/08/16 04:22 Albumin/Globulin Ratio 1.2 % 11/08/16 04:22 Triglycerides 82 mg/dL (2-149) 11/07/16 08:20 Cholesterol 147 mg/dL (50-199) 11/07/16 08:20 LDL Cholesterol Direct 82 mg/dL (50-130) 11/07/16 08:20 HDL Cholesterol 49 mg/dL (40-59) 11/07/16 08:20 Cholesterol/HDL Ratio 3.00 % 11/07/16 08:20 Vitamin B12 > 2000 pg/mL (211-911) H 11/07/16 10:00 Folate 8.71 ng/mL (7.3-26.0) 11/07/16 10:00 Blood Type O POSITIVE 11/07/16 10:00 Antibody Screen Negative 11/07/16 10:00 Crossmatch See Detail 11/07/16 10:00
[2016-11-08] MEDS ORDERED: BABY ASPIRIN PO SCH (10:00)
--- NOTE | 2016-11-08 11:01 | Admit Criteria Form ---
Admission Criteria Documentation: MYOCARDIAL INFARCTION Clinical Indications for Admission to Inpatient Care (Place 'X' for any and all applicable criteria): Admission is indicated for ANY ONE of the following (1)(2)(3)(4): [ ]I. Acute [place] [X]II. Contraindications and/or Inappropriate clinical situations for Observational Care in patients with Myocardial Infarction, when ANY ONE of the following is required: [ ]a) Patient with High risk of cardiac embolism (e.g, patients with previous cardiac embolism, LVEF < 40%, age >75 and patients with prosthetic valve) 18 [ ]b) Patient with Moderate risk including DM patient, CAD and patient aged 65-75 18 [X]c) Patient with any change in cardiac biomarker especially troponin should be managed as high risk in an inpatient setting 19 [ ]d) Physician judgement irrespective of ECG and other diagnostic findings 20 [ ]III.General contraindications and/or Inappropriate clinical situations for Observational Care in patients with Myocardial Infarction, when ANY ONE of the following is required: [ ]a) Prediction of prolongation of LOS based on ANY ONE of the following may be considered as a contraindication for observational care 2, 3, 4, 5, 6, 7, 8, 9, 10, 11 [ ]i) Age > 65 yrs. [ ]ii) Patient arriving by ambulance [ ]iii) Patient with high acuity [ ]iv) Patient requiring vital sign monitoring [ ]v) Patient on IV medication [ ]b) Systolic blood pressures 180mmHg 3,12 [ ]c) Patient with altered mental status including delirium and other alteration of consciousness, (3) [ ]d) Patient whose discharge disposition will be to a halfway home or rehabilitation home should not be managed in Emergency Department Observation Unit. CMS rule requires 3 days hospital stay before such placement. 3,13 [ ]e) Patient with failure to thrive due to broad array of etiologies 3 ,16,17 [ ]f) Inability to ambulate 3,14 Extended stay beyond goal length of stay may be needed for (1)(18)(20)(24)(25): [ ]a) Hemodynamic instability, persisting symptoms after intensive medical management, or recurring severe, prolonged symptoms [ ]b) Intravascular procedural complications such as acute vessel closure, stent thrombosis, stent malposition, or vessel dissection (26)(27)(28) [ ]c) Extravascular procedural complications such as retroperitoneal hematoma , pericardial effusion, or cardiac tamponade [ ]d) Entry site complications causing bleeding, hematoma or distal ischemia and requiring ongoing monitoring, surgical repair or surgical thrombectomy(29) [ ]e) Dangerous arrhythmia [ ]f) Complicated percutaneous coronary intervention (e.g., unsuccessful percutaneous coronary intervention or percutaneous coronary intervention of non- [place] vessel) [ ]g) Urgent or emergent surgery for complications of WI (e.g., ventricular rupture, valvular insufficiency) [ ]h) Surgical revascularization via coronary artery bypass graft [ ]i) Heart failure (e.g., pulmonary edema) [ ]j) Unstable pulmonary comorbidities, including COPD or pneumonia (31) [ ]k) Acute renal failure The original [employer] content created by [employer] has been revised. The portions of the content which have been revised are identified through the use of italic text or in bold, and [employer] has neither reviewed nor approved the modified material. All other unmodified content is copyright [facility] Please see references footnoted in the original [facility] edition 2016 Admission Criteria Met: Yes
--- NOTE | 2016-11-08 12:14 | Progress Note ---
Assessment and Plan Await EGD findings. Lexiscan thallium stress test when anemia is adequately resolved. - Patient Problems (1) NSTEMI (non-ST elevated myocardial infarction) Current Visit: Yes Status: Acute (2) GI bleed Current Visit: Yes Status: Acute Qualifiers: GI bleed type/associated pathology: G Gastritis type: G (3) Chest pain Current Visit: Yes Status: Resolved Qualifiers: Chest pain type: unspecified Qualified Code(s): R07.9 - Chest pain, unspecified (4) Anemia Current Visit: No Status: Chronic Qualifiers: Anemia type: iron deficiency Iron deficiency anemia type: I Vitamin B12 deficiency anemia type: V Folate deficiency anemia type: F Bone marrow failure anemia type: B Hemolytic anemia type: H Other causes of anemia: O (5) Hypertension Current Visit: No Status: Chronic Qualifiers: Hypertension type: H (6) PVD (peripheral vascular disease) with claudication Current Visit: No Status: Chronic (7) Tobacco abuse Current Visit: No Status: Chronic Subjective Date of service: 11/08/16 Principal diagnosis: atypical chest pain, anemia Interval history: The patient is resting comfortably in bed. No new complaints. Sinus rhythm on the monitor. Awaiting EGD this morning. Objective Last Vital Signs Temp 98.1 F 11/08/16 09:28 Pulse 91 H 11/08/16 10:00 Resp 18 11/08/16 10:00 BP 142/67 11/08/16 09:28 Pulse Ox 99 11/08/16 10:00 - Physical Examination HEENT: Positive: PERRL, Mucus Membranes Moist Neck: Positive: neck supple, trachea midline Cardiac: Positive: Reg Rate and Rhythm, S1/S2 Lungs: Positive: clear to auscultation Neuro: Positive: Grossly Intact Abdomen: Positive: Soft, Active Bowel Sounds, Tender (epigastric). Negative: Distended Skin: Positive: Clear Incision: Cardiac Cath Site Musculoskeletal: No Pain, Normal Range of Motion Extremities: Present: normal. Absent: edema - Labs and Meds Cardiac Enzymes 11/07/16 11/07/16 11/07/16 Range/Units 11:57 17:17 23:18 AST (5-40) units/L CK-MB (CK-2) 19.0 H 15.3 H 9.9 H (0.0-4.0) ng/mL 11/08/16 11/08/16 Range/Units 04:22 04:22 AST 23 (5-40) units/L CK-MB (CK-2) 7.8 H (0.0-4.0) ng/mL CBC 11/08/16 Range/Units 04:22 WBC 8.8 (4.5-11.0) K/mm3 RBC 2.99 L (3.65-5.03) M/mm3 Hgb 9.1 L (10.1-14.3) gm/dl Hct 27.1 L D (30.3-42.9) % Plt Count 285 (140-440) K/mm3 Lymph # 3.0 (1.2-5.4) K/mm3 [place] # 0.6 (0.0-0.8) K/mm3 Eos # 0.1 (0.0-0.4) K/mm3 Baso # 0.0 (0.0-0.1) K/mm3 Comprehensive Metabolic Panel 11/08/16 Range/Units 04:22 Sodium 144 (137-145) mmol/L Potassium 4.2 D (3.6-5.0) mmol/L Chloride 110.7 H (98-107) mmol/L Carbon Dioxide 22 (22-30) mmol/L BUN 15 (7-17) mg/dL Creatinine 1.1 (0.7-1.2) mg/dL Glucose 95 (65-100) mg/dL Calcium 8.5 (8.4-10.2) mg/dL AST 23 (5-40) units/L ALT 12 (7-56) units/L Alkaline Phosphatase 86 (35-129) units/L Total Protein 5.9 L (6.3-8.2) g/dL Albumin 3.2 L (3.9-5) g/dL - Imaging and Cardiology Echo: report reviewed (06/2016 normal LV function no significant regurgitations) - Telemetry EKG Rhythm: Sinus Rhythm
[2016-11-08] MEDS ORDERED: ANCEF/STERILE WATER 2 GM/20 ML 2 GM/20 ML SYRINGE IV NR (14:00)
--- NOTE | 2016-11-08 14:47 | Anesthesia Day of Surgery ---
Anesthesia Day of Surgery - Day of Surgery Patient Examined: Yes Patient H&P Reviewed: Yes Patient is NPO: Yes Beta Blockers: Yes Cardiac Clearance: Yes Pulmonary Clearance: No
--- NOTE | 2016-11-08 14:48 | Anesthesia Consultation ---
Anesthesia Consult and Med Hx Date of service: 11/08/16 - Airway Anesthetic Teeth Evaluation: Dentures, Edentulous ROM Head & Neck: Adequate Mental/Hyoid Distance: Adequate Mallampati Class: Class II Intubation Access Assessment: Probably Good - Pulmonary Exam CTA: Yes (blbs clear but diminished) - Cardiac Exam Cardiac Exam: RRR - Pre-Operative Health Status ASA Pre-Surgery Classification: ASA4 Proposed Anesthetic Plan: MAC - Pulmonary Hx Smoking: Yes - Cardiovascular System Hx Hypertension: Yes Hx Coronary Artery Disease: Yes Hx Heart Attack/AMI: Yes Hx Peripheral Vascular Disease: Yes (Stent to Right leg 08/11/16) - Central Nervous System Hx Psychiatric Problems: No - Other Systems Hx Cancer: No
[2016-11-08] MEDS ORDERED: NACL 0.9% 1000 ML 1,000 ML IV SCH (15:00)
[2016-11-08] MEDS: NACL 0.9% 1000 ML 1,000 ML IV SCH (15:11)
[2016-11-08] MEDS ORDERED: DIPRIVAN 10 MG/ML IV ONE (15:37)
--- NOTE | 2016-11-08 16:14 | Post Operative Note ---
Pre-op diagnosis: gi bleed, anemia Post-op diagnosis: same Findings: EGD: hiatal hernia - few small ulceration gastric body and antrum but no bleeding stigmata (bx's) - otherwise benign Procedure: EGD w/ bx's Anesthesia: MAC Surgeon: KATHI PERERA Estimated blood loss: none Pathology: list Specimen disposition: to lab Condition: stable Disposition: floor
--- NOTE | 2016-11-08 16:40 | Post Anesthesia Evaluation ---
- Post Anesthesia Evaluation Patient Participated: Yes Airway Patent: Yes Stable Respiratory Function: Yes Nausea/Vomiting: No Temp > 96.8F: Yes Pain Manageable: Yes Adequeate Hydration: Yes Anesthesia Complications: No Block Receding Appropriately: Not Applicable Patient on Ventilator: No
[2016-11-08] MEDS ORDERED: GOLYTELY PO ONE (18:00)
[2016-11-08] MEDS: PEPCID PO SCH ×2 (19:16→21:26)
[2016-11-08] MEDS: TENORMIN PO SCH (19:16)
--- NOTE | 2016-11-08 21:11 | Operative Report ---
PROCEDURE: EGD with cold biopsy. INDICATION: 1. Anemia. 2. Possible gastrointestinal bleed. MEDICATIONS: Propofol per [facility] [employer]ER. COMPLICATIONS: None. DESCRIPTION OF PROCEDURE: The patient was brought to procedure suite. The patient had the procedure discussed with her at length. All risks, complications, and benefits discussed after which the patient signed for the procedure to be performed. The patient was placed in left lateral decubitus position. Mouth block was placed in the patient's oral cavity. After adequate sedation medication as above, endoscope was placed in the mouth and brought to the level of the second portion of duodenum. Retroflexion view performed. The patient's vital signs remained stable throughout the procedure. FINDINGS: There was a medium hiatal hernia at GE junction. GE junction appeared otherwise intact at 38 cm from the gums. The esophagus otherwise appeared to be normal. There were multiple small gastric erosions and ulcerations noted in the gastric antrum, but no obvious stigmata of bleeding. There were also a few erosions in the proximal stomach. Biopsies were taken in the antrum, sent to pathology. The remaining stomach otherwise appeared to be normal. Duodenum appeared to be normal. Retroflexion view performed in the stomach showed no other pathology other than noted above. The patient tolerated the procedure well. No complications during the procedure. IMPRESSION: 1. Hiatal hernia. 2. Otherwise, normal esophagus. 3. Gastric erosions and small ulcerations noted in the stomach, but no stigmata of bleeding with biopsies taken. 4. Otherwise, normal stomach. 5. Normal duodenum. RECOMMENDATIONS: 1. Follow up biopsy results. 2. Stool for H. pylori, if present, we will treat. 3. Anti-reflux diet. 4. PPI daily. 5. Colonoscopy in a.m. JOB# [id number] [facility]
[2016-11-09 05:57] LABS: Basophils % (Auto) 0.2 % (0.0-1.8); Eosinophils % (Auto) 0.5 % (0.0-4.3); Hematocrit 28.7 % (30.3-42.9); Hemoglobin 9.6 gm/dl (10.1-14.3); Mean Corpuscular HGB Conc 33 % (30-34); Mean Corpuscular Hemoglobin 30 pg (28-32); Mean Corpuscular Volume 90 fl (79-97); Platelet Count 325 K/mm3 (140-440); Red Blood Count 3.19 M/mm3 (3.65-5.03); Red Cell Distribution Width 14.5 % (13.2-15.2); White Blood Count 8.3 K/mm3 (4.5-11.0)
[2016-11-09 06:17] LABS: Alanine Aminotransferase 12 units/L (7-56); Albumin 3.2 g/dL (3.9-5); Albumin/Globulin Ratio 1.1 %; Alkaline Phosphatase 90 units/L (35-129); Anion Gap 17 mmol/L; Bilirubin,Total 0.2 mg/dL (0.1-1.2); Blood Urea Nitrogen 8 mg/dL (7-17); Calcium 8.7 mg/dL (8.4-10.2); Carbon Dioxide 21 mmol/L (22-30); Chloride 110.7 mmol/L (98-107); Glucose 87 mg/dL (65-100); Potassium 3.7 mmol/L (3.6-5.0); Sodium 145 mmol/L (137-145); Total Protein 6.1 g/dL (6.3-8.2)
[2016-11-09] MEDS: PEPCID PO SCH ×2 (09:39→22:19)
[2016-11-09] MEDS: TENORMIN PO SCH (09:39)
--- NOTE | 2016-11-09 10:01 | Progress Note ---
Assessment and Plan Anemia from GI bleeding Atypical chest pain nstemi type 2 from anemia pad chol rec: inna in am and guidance about anti platlet therapy going forward on patient from gi Subjective Date of service: 11/09/16 Principal diagnosis: atypical chest pain, anemia Interval history: pt feeling better awaiting colonscopy Objective Vital Signs Temp Pulse Pulse Resp BP BP Pulse Ox 11/09/16 08:16 98.3 F 87 18 138/79 99 11/09/16 05:17 98.6 F 88 20 142/81 98 11/09/16 05:00 90 11/08/16 23:38 97.6 F 91 H 18 155/73 100 11/08/16 21:56 100 H 11/08/16 20:08 98.6 F 96 H 20 159/81 99 11/08/16 19:16 101 H 11/08/16 16:33 87 21 151/85 99 11/08/16 16:18 91 H 19 145/76 100 11/08/16 16:03 99 F 97 H 22 126/65 100 11/08/16 15:05 98.7 F 89 10 L 156/93 100 11/08/16 13:06 98.5 F 94 H 18 163/76 100 11/08/16 10:00 91 H 18 99 - Physical Examination General: No Apparent Distress HEENT: Positive: PERRL, Mucus Membranes Moist Neck: Positive: neck supple, trachea midline Cardiac: Positive: Reg Rate and Rhythm Lungs: Positive: clear to auscultation Neuro: Positive: Grossly Intact Abdomen: Positive: Soft, Active Bowel Sounds, Tender (epigastric). Negative: Distended Skin: Positive: Clear Incision: Cardiac Cath Site Musculoskeletal: No Pain, Normal Range of Motion Extremities: Present: normal. Absent: edema - Labs and Meds Cardiac Enzymes 11/09/16 Range/Units 04:41 AST 20 (5-40) units/L CBC 11/09/16 Range/Units 04:41 WBC 8.3 (4.5-11.0) K/mm3 RBC 3.19 L (3.65-5.03) M/mm3 Hgb 9.6 L (10.1-14.3) gm/dl Hct 28.7 L (30.3-42.9) % Plt Count 325 (140-440) K/mm3 Lymph # 2.1 (1.2-5.4) K/mm3 Saline # 0.6 (0.0-0.8) K/mm3 Eos # 0.0 (0.0-0.4) K/mm3 Baso # 0.0 (0.0-0.1) K/mm3 Comprehensive Metabolic Panel 11/09/16 Range/Units 04:41 Sodium 145 (137-145) mmol/L Potassium 3.7 (3.6-5.0) mmol/L Chloride 110.7 H (98-107) mmol/L Carbon Dioxide 21 L (22-30) mmol/L BUN 8 (7-17) mg/dL Creatinine 0.8 (0.7-1.2) mg/dL Glucose 87 (65-100) mg/dL Calcium 8.7 (8.4-10.2) mg/dL AST 20 (5-40) units/L ALT 12 (7-56) units/L Alkaline Phosphatase 90 (35-129) units/L Total Protein 6.1 L (6.3-8.2) g/dL Albumin 3.2 L (3.9-5) g/dL - Imaging and Cardiology Echo: report reviewed (06/2016 normal LV function no significant regurgitations)
[2016-11-09] MEDS: NACL 0.9% 1000 ML 1,000 ML IV SCH (12:09)
[2016-11-09] MEDS ORDERED: DIPRIVAN 10 MG/ML IV ONE ×2 (12:39)
--- NOTE | 2016-11-09 13:24 | Anesthesia Day of Surgery ---
Anesthesia Day of Surgery - Day of Surgery Patient Examined: Yes Patient H&P Reviewed: Yes Patient is NPO: Yes Beta Blockers: Yes Cardiac Clearance: Yes
--- NOTE | 2016-11-09 13:59 | Post Operative Note ---
Pre-op diagnosis: anemia Post-op diagnosis: same Findings: Colonoscopy: 7-0 mm ascending colon polyp (snare) - internal hemorrhoids Procedure: colonoscopy Anesthesia: MAC Surgeon: KATHI PERERA Estimated blood loss: none Pathology: list Specimen disposition: to lab Condition: stable Disposition: floor
--- NOTE | 2016-11-09 15:10 | Operative Report ---
PROCEDURE: Colonoscopy with snare polypectomy. INDICATION: 1. Anemia. 2. Possible GI bleed. 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 COMPLICATIONS: None. DESCRIPTION OF PROCEDURE: The patient was brought to procedure suite. The patient had the procedure discussed with her at length. All risks, complications, and benefits discussed after which the patient signed for the procedure to be performed. The patient was placed in left lateral decubitus position. Rectal exam performed prior to insertion of the scope. After adequate sedation medication as above, the colonoscope was inserted into the rectum and brought to the level of the cecum. Ileocecal valve and appendiceal orifice, cecal strap were adequately visualized. Colonoscope was then slowly removed and the mucosa of the colon was visualized. Prep quality for this procedure was fair. The patient's vital signs remained stable throughout the procedure. FINDINGS: There was noted to be a 7-10 mm sessile small polyp noted in the proximal transverse colon. Snare polypectomy technique was applied with removal and retrieval of this polyp and sent to pathology. No other masses, lesions, or polyps were noted. No diverticula were noted. Retroflexion view performed in the rectum showed no other pathology other than noted above. The patient tolerated the procedure well. No complications during the procedure. IMPRESSION: 1. Polyp x 1, status post snare removal. 2. Internal hemorrhoids. 3. Otherwise, normal colonoscopy. RECOMMENDATIONS: 1. Follow up biopsy results. 2. Advance diet. 3. Okay to discharge from GI standpoint, we will follow up as an outpatient. JOB# [id number] [facility]/NTS
--- NOTE | 2016-11-09 22:31 | Progress Note ---
Hospitalist Physical - Constitutional Vitals: Temp Pulse Resp BP Pulse Ox 97.9 F 90 12 122/58 98 11/09/16 20:00 11/09/16 22:20 11/09/16 22:20 11/09/16 20:00 11/09/16 20:00 General appearance: Present: no acute distress Results - Labs CBC & Chem 7: 11/09/16 04:41 11/09/16 04:41 Labs: Laboratory Last Values WBC 8.3 K/mm3 (4.5-11.0) 11/09/16 04:41 RBC 3.19 M/mm3 (3.65-5.03) L 11/09/16 04:41 Hgb 9.6 gm/dl (10.1-14.3) L 11/09/16 04:41 Hct 28.7 % (30.3-42.9) L 11/09/16 04:41 MCV 90 fl (79-97) 11/09/16 04:41 MCH 30 pg (28-32) 11/09/16 04:41 MCHC 33 % (30-34) 11/09/16 04:41 RDW 14.5 % (13.2-15.2) 11/09/16 04:41 Plt Count 325 K/mm3 (140-440) 11/09/16 04:41 Lymph % (Auto) 25.6 % (13.4-35.0) 11/09/16 04:41 [place] % (Auto) 6.8 % (0.0-7.3) 11/09/16 04:41 Eos % (Auto) 0.5 % (0.0-4.3) 11/09/16 04:41 Baso % (Auto) 0.2 % (0.0-1.8) 11/09/16 04:41 Lymph # 2.1 K/mm3 (1.2-5.4) 11/09/16 04:41 [place] # 0.6 K/mm3 (0.0-0.8) 11/09/16 04:41 Eos # 0.0 K/mm3 (0.0-0.4) 11/09/16 04:41 Baso # 0.0 K/mm3 (0.0-0.1) 11/09/16 04:41 Seg Neutrophils % 66.9 % (40.0-70.0) 11/09/16 04:41 Seg Neutrophils # 5.6 K/mm3 (1.8-7.7) 11/09/16 04:41 PT 13.5 Sec. (12.2-14.9) 11/07/16 10:00 INR 1.04 (0.87-1.13) 11/07/16 10:00 APTT 28.2 Sec. (24.2-36.6) 11/07/16 10:00 Sodium 145 mmol/L (137-145) 11/09/16 04:41 Potassium 3.7 mmol/L (3.6-5.0) 11/09/16 04:41 Chloride 110.7 mmol/L (98-107) H 11/09/16 04:41 Carbon Dioxide 21 mmol/L (22-30) L 11/09/16 04:41 Anion Gap 17 mmol/L 11/09/16 04:41 BUN 8 mg/dL (7-17) 11/09/16 04:41 Creatinine 0.8 mg/dL (0.7-1.2) 11/09/16 04:41 Estimated GFR > 60 ml/min 11/09/16 04:41 BUN/Creatinine Ratio 10.00 % 11/09/16 04:41 Glucose 87 mg/dL (65-100) 11/09/16 04:41 Calcium 8.7 mg/dL (8.4-10.2) 11/09/16 04:41 Magnesium 2.6 mg/dL (1.7-2.3) H 11/07/16 10:00 Iron 24 ug/dL (37-170) L 11/07/16 10:00 TIBC 263 mcg/dL (250-450) 11/07/16 10:00 Total Bilirubin 0.2 mg/dL (0.1-1.2) 11/09/16 04:41 Direct Bilirubin < 0.2 mg/dL (0-0.2) 11/07/16 10:00 AST 20 units/L (5-40) 11/09/16 04:41 ALT 12 units/L (7-56) 11/09/16 04:41 Alkaline Phosphatase 90 units/L (35-129) 11/09/16 04:41 Total Creatine Kinase 207 units/L (30-135) H 11/08/16 04:22 CK-MB (CK-2) 7.8 ng/mL (0.0-4.0) H 11/08/16 04:22 CK-MB (CK-2) Rel Index 3.7 (0-4) 11/08/16 04:22 Troponin T 0.368 ng/mL (0.00-0.029) H* 11/08/16 04:22 NT-Pro-B Natriuret Pep 1652 pg/mL (0-900) H 11/07/16 10:00 Total Protein 6.1 g/dL (6.3-8.2) L 11/09/16 04:41 Albumin 3.2 g/dL (3.9-5) L 11/09/16 04:41 Albumin/Globulin Ratio 1.1 % 11/09/16 04:41 Triglycerides 82 mg/dL (2-149) 11/07/16 08:20 Cholesterol 147 mg/dL (50-199) 11/07/16 08:20 LDL Cholesterol Direct 82 mg/dL (50-130) 11/07/16 08:20 HDL Cholesterol 49 mg/dL (40-59) 11/07/16 08:20 Cholesterol/HDL Ratio 3.00 % 11/07/16 08:20 Vitamin B12 > 2000 pg/mL (211-911) H 11/07/16 10:00 Folate 8.71 ng/mL (7.3-26.0) 11/07/16 10:00 Blood Type O POSITIVE 11/07/16 10:00 Antibody Screen Negative 11/07/16 10:00 Crossmatch See Detail 11/07/16 10:00
[2016-11-10] MEDS ORDERED: LEXISCAN IV ONE (08:35)
--- NOTE | 2016-11-10 09:43 | Discharge Summary ---
Providers - Providers Date of Admission: 11/07/16 11:45 Date of discharge: 11/10/16 Attending physician: CLARISA BUSTAMANTE CONSULTS: GI Primary care physician: TODD BOND MD Hospitalization Condition: Stable Disposition: DISCHARGED TO HOME OR SELFCARE Time spent for discharge: 35 min Core Measure Documentation - Palliative Care Palliative Care/ Comfort Measures: Not Applicable - Core Measures Any of the following diagnoses?: none Exam - Physical Exam Narrative exam: Patient seen and examined: - Constitutional Vitals: Temp Pulse Resp BP Pulse Ox 98.4 F 81 20 132/72 97 11/10/16 05:33 11/10/16 05:33 11/10/16 05:33 11/10/16 05:33 11/10/16 05:33 General appearance: Present: no acute distress, well-nourished - EENT Eyes: Present: PERRL, EOM intact. Absent: scleral icterus, conjunctival injection - Neck Neck: Present: supple, normal ROM. Absent: masses or JVD - Respiratory Respiratory effort: normal Respiratory: bilateral: CTA, negative: rhonchi, wheezing - Cardiovascular Rhythm: regular Heart Sounds: Present: S1 & S2. Absent: systolic murmur - Extremities Extremities: no ischemia - Abdominal General gastrointestinal: Present: soft, non-tender, non-distended, normal bowel sounds - Integumentary Integumentary: Present: warm, dry. Absent: jaundice, rash - Musculoskeletal Musculoskeletal: strength equal bilaterally - Psychiatric Psychiatric: cooperative - Neurologic Neurologic: CNII-XII intact, no focal deficits Plan Activity: advance as tolerated Diet: low cholesterol, low salt Follow up with: PRIMARY MD RONDA [Primary Care Provider] - 3-5 Days KATHI PERERA MD [Staff Physician] - 14 Days Prescriptions: Aspirin EC [Aspirin Enteric Coated TAB] 81 mg PO DAILY #30 tablet AtorvaSTATin [Lipitor] 40 mg PO HS #30 tablet Bisacodyl [Dulcolax suppos] 10 mg CA QDAY PRN #30 supp.rect PRN Reason: Constipation unrelieved by MOM Clopidogrel Bisulfate [Plavix] 75 mg PO DAILY #30 tablet Docusate Sodium [Colace] 100 mg PO BID PRN #60 capsule PRN Reason: Constipation Famotidine [Pepcid] 20 mg PO BID #60 tablet Ferrous Sulfate [Feosol 325 MG tab] 325 mg PO BID #60 tablet Metoprolol [Lopressor TAB] 25 mg PO BID #60 tablet Pending Studies pending on result of stress test
--- NOTE | 2016-11-10 10:36 | Progress Note ---
Assessment and Plan Anemia from GI bleeding hemoglobin stable s/p PRBC transfusion no active bleeding noted on EGD/colonoscopy ok to resume low dose ASA and Plavix per GI continue PPI Atypical chest pain resolved Nstemi type 2 from anemia lexiscan thallium stress test today negative for ischemia PAD continue ASA 81 and Plavix Hyperlipidemia Tobacco abuse Stress test today negative for ischemia. Okay to resume low dose aspirin and Plavix per GI. Initiate metoprolol 25mg BID. Follow up appointment with Dr. Conner in the [place] office on 12/06/16 at 10: 15 am. The patient has been seen in conjunction with Dr. Conner who agrees with the assessment and plan of care. - Patient Problems (1) NSTEMI (non-ST elevated myocardial infarction) Current Visit: Yes Status: Acute (2) GI bleed Current Visit: Yes Status: Acute Qualifiers: GI bleed type/associated pathology: G Gastritis type: G (3) Chest pain Current Visit: Yes Status: Resolved Qualifiers: Chest pain type: unspecified Qualified Code(s): R07.9 - Chest pain, unspecified (4) Anemia Current Visit: No Status: Chronic Qualifiers: Anemia type: iron deficiency Iron deficiency anemia type: I Vitamin B12 deficiency anemia type: V Folate deficiency anemia type: F Bone marrow failure anemia type: B Hemolytic anemia type: H Other causes of anemia: O (5) Hypertension Current Visit: No Status: Chronic Qualifiers: Hypertension type: H (6) PVD (peripheral vascular disease) with claudication Current Visit: No Status: Chronic (7) Tobacco abuse Current Visit: No Status: Chronic Subjective Date of service: 11/10/16 Principal diagnosis: atypical chest pain, anemia Interval history: Patient is resting in bed. No new complaints. Sinus rhythm on the monitor. Objective Last Vital Signs Temp 98.4 F 11/10/16 05:33 Pulse 81 11/10/16 09:00 Resp 20 11/10/16 05:33 BP 132/72 11/10/16 05:33 Pulse Ox 97 11/10/16 05:33 - Physical Examination General: No Apparent Distress HEENT: Positive: PERRL, Mucus Membranes Moist Neck: Positive: neck supple, trachea midline Cardiac: Positive: Reg Rate and Rhythm, S1/S2 Lungs: Positive: clear to auscultation Neuro: Positive: Grossly Intact Abdomen: Positive: Soft, Active Bowel Sounds, Tender (epigastric). Negative: Distended Skin: Positive: Clear Incision: Cardiac Cath Site Musculoskeletal: No Pain, Normal Range of Motion Extremities: Present: normal. Absent: edema - Imaging and Cardiology Echo: report reviewed (06/2016 normal LV function no significant regurgitations) - Telemetry EKG Rhythm: Sinus Rhythm
[2016-11-10 10:52] VITALS: BP 137/69
[2016-11-10] MEDS: PEPCID PO SCH (11:09)
[2016-11-10] MEDS: TENORMIN PO SCH (11:09)
--- NOTE | 2016-11-10 12:17 | Query- Chest Pain ---
Ivan Maldonado____Matt Date:____11/10/16 Adali/CDS: Perez Zepedaeusebia Phone#: [phone] Exercise your independent professional judgment when responding to query. Questions asked do not imply a particular answer is desired or expected. We greatly appreciate your clarification on this issue. Clinical Documentation States: 66 year old female was admitted on 11/07/16. The Cardiology progress note states " Atypical chest pain resolved. Nstemi type 2 from anemia lexiscan thallium stress test today negative for ischemia " Please document the etiology of Chest Pain: [ ] Myocardial Infarction [ ] Pneumonia [ ] Mediastinitis [ ] Costochondritis [ ] Pulmonary Embolism [ ] Coronary Artery Disease [ ] GERD [ ] Other: [ ] Comment/Explanation: Present on Admission: [ ] Yes (Y) [ ] Clinically undeterminable (W) [ ] No(N) Please document response in your Progress Notes and/or Discharge Summary and indicate if the condition was present on admission. LOLLY
--- NOTE | 2016-11-10 12:23 | Treadmill Report ---
NUCLEAR STRESS TEST CLINICAL INFORMATION: For non-ST elevation RI. IMAGING PROTOCOL: The patient received 10 mCi of Technetium 99m Tetrofosmin for resting image and 28 mCi of Technetium 99m Tetrofosmin for stress imaging. The imaging for the whole procedure was completed 30-90 minutes following the initial injection of Technetium 99m tetrofosmin. The SPECT imaging in the 180 degree arc was performed in the right anterior oblique projection. Computerized reconstruction of the images was performed for analysis. IMAGING RESULTS: Normal cavity size from stress to rest. Normal distribution of radionuclide in the anterior, inferior, septal, and apical regions. Gated SPECT, EF 58% with no wall motion abnormality. The patient infused Lexiscan with no EKG changes. SUMMARY: 1. Negative Lexiscan EKG. 2. Normal rest and stress myocardial perfusion scan. No significant stress ischemia. No wall motion. Gated SPECT, EF 58%. JOB# [id number] [facility]
== END 2016-11-10 12:40 | disposition home or self-care (01) | DRG 377 ==
LOC: ED 07:52 → 4A 11:45
PROVIDERS: ADMIT Internal Medicine; ATTEND Internal Medicine
PROC: 30233N1 Transfusion of Nonautologous Red Blood Cells into Peripheral Vein, Percutaneous Approach (ICD-10-PCS; 2016-11-07)
PROC: 0DB68ZX Excision of Stomach, Via Natural or Artificial Opening Endoscopic, Diagnostic (ICD-10-PCS; principal; 2016-11-08)
PROC: 0DBL8ZX Excision of Transverse Colon, Via Natural or Artificial Opening Endoscopic, Diagnostic (ICD-10-PCS; 2016-11-09)
DX: K92.2 Gastrointestinal hemorrhage, unspecified (principal); I21.4 Non-ST elevation (NSTEMI) myocardial infarction; I73.9 Peripheral vascular disease, unspecified; D64.9 Anemia, unspecified; I10 Essential (primary) hypertension; K44.9 Diaphragmatic hernia without obstruction or gangrene; K21.9 Gastro-esophageal reflux disease without esophagitis; F17.210 Nicotine dependence, cigarettes, uncomplicated; I25.10 Atherosclerotic heart disease of native coronary artery without angina pectoris; E78.5 Hyperlipidemia, unspecified; R07.89 Other chest pain; K64.8 Other hemorrhoids; D12.3 Benign neoplasm of transverse colon; I25.2 Old myocardial infarction; Z79.82 Long term (current) use of aspirin; Z95.820 Peripheral vascular angioplasty status with implants and grafts
CPT/HCPCS: 36415; 71010; 78452; 80048; 80053; 80061; 80074; 82550; 82553; 82607; 82747; 83550; 83735; 83880; 84484; 85025; 85610; 85730; 86850; 86900; 86901; 86920; 88305; 88342; 93005; 93010; 93017; 96374; A9270-GY; A9502; C9113; J2704; J2785; J7030; J7040; P9016

== ENCOUNTER 2018-10-09 06:36 | Emergency (ER) | payer OTHER, MEDICARE ==
[2018-10-09 06:53] VITALS: BP 142/78
--- NOTE | 2018-10-09 07:51 | XRay Report ---
FINAL REPORT PROCEDURE: XR SPINE CERVICAL 2-3V TECHNIQUE: Cervical spine radiographs, minimum of four views, including AP, lateral and bilateral ob lique projections. HISTORY: neck pain COMPARISON: No prior studies are available for comparison. FINDINGS: Prevertebral soft tissues: Normal. Alignment: Normal. Vertebral body heights/Disk spaces: There is degenerative narrowing the disc spaces at C5-C6 and C6-C 7 with osteophytic ridging. Fracture(s): None. Neural foramina: Normal. Facets: Normal. Bone mineralization: Normal. IMPRESSION: There are no fractures or malalignments. Soft tissues are unremarkable.
[2018-10-09] MEDS ORDERED: IBUPROFEN PO ONE (08:24)
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
== END 2018-10-09 08:40 | disposition home or self-care (01) ==
LOC: ED 06:36
DX: M54.2 Cervicalgia (principal); M54.5 Low back pain; I10 Essential (primary) hypertension; I25.2 Old myocardial infarction; K21.9 Gastro-esophageal reflux disease without esophagitis; Z87.891 Personal history of nicotine dependence
CPT/HCPCS: 72040; 99283

== ENCOUNTER 2019-06-28 16:44 | Inpatient (IN) | payer BC, MEDICARE ==
--- NOTE | 2019-06-28 17:33 | Emergency Department Report ---
Blank Doc - Documentation Documentation: 69-year-old female that presents with weakness and SOB. This initial assessment/diagnostic orders/clinical plan/treatment(s) is/are subject to change based on patient's health status, clinical progression and re- assessment by fellow clinical providers in the ED. Further treatment and workup at subsequent clinical providers discretion. Patient/guardians urged not to elope from the ED as their condition may be serious if not clinically assessed and managed. Initial orders include: 1- Patient sent to Main for further evaluation and treatment 2- labs 3- EKG 4- CXR
--- NOTE | 2019-06-28 18:18 | XRay Report ---
CHEST 2 VIEWS INDICATION / CLINICAL INFORMATION: Chest Pain. COMPARISON: Chest x-ray on 05/04/2019. FINDINGS: SUPPORT DEVICES: None. HEART / MEDIASTINUM: Normal heart size. Atherosclerosis in the thoracic aorta. LUNGS / PLEURA: No significant pulmonary or pleural abnormality. No pneumothorax. ADDITIONAL FINDINGS: No significant additional findings. IMPRESSION: 1. No acute findings. No adverse change from the previous study. Signer Name: See Govea MD Signed: 06/28/2019 6:14 PM Workstation Name: [id number]
[2019-06-28 18:39] LABS: Basophils # (Auto) 0.1 K/mm3 (0.0-0.1); Basophils % (Auto) 0.6 % (0.0-1.8); Eosinophils # (Auto) 0.1 K/mm3 (0.0-0.4); Eosinophils % (Auto) 0.6 % (0.0-4.3); Hematocrit 24.5 % (30.3-42.9); Lymphocytes # (Auto) 2.2 K/mm3 (1.2-5.4); Lymphocytes % (Auto) 24.7 % (13.4-35.0); Mean Corpuscular HGB Conc 33 % (30-34); Mean Corpuscular Volume 92 fl (79-97); Monocytes # (Auto) 0.5 K/mm3 (0.0-0.8); Monocytes % (Auto) 5.5 % (0.0-7.3); Platelet Count 384 K/mm3 (140-440); Red Blood Count 2.68 M/mm3 (3.65-5.03); Red Cell Distribution Width 16.8 % (13.2-15.2)
[2019-06-28 18:44] LABS: INR 1.07 (0.87-1.13); Partial Thromboplastin Time 26.9 Sec. (24.2-36.6)
[2019-06-28 18:57] LABS: Alanine Aminotransferase 15 units/L (7-56); Albumin 3.9 g/dL (3.9-5); BUN/Creatinine Ratio 33; Blood Urea Nitrogen 26 mg/dL (7-17); Calcium 9.1 mg/dL (8.4-10.2); Hemolysis Index 0
--- NOTE | 2019-06-28 20:13 | Emergency Department Report ---
ED GI Bleed HPI - General Chief complaint: Weakness Stated complaint: WEAKNESS/NAUSEA Time Seen by Provider: 06/28/19 19:32 Source: patient Mode of arrival: Ambulatory Limitations: No Limitations - History of Present Illness MD complaint: melena -: Sudden Radiation: none Severity scale (0 -10): 0 Quality: painless Consistency: constant Context: history of GI bleed Associated Symptoms: malaise, weakness, other (KIRAN). denies: abdominal pain, nausea, vomiting, epistaxis, fever/chills, headaches, loss of appetite, easy bruising, rash, other bleeding, shortness of breath, syncope - Related Data Previous Rx's Medication Instructions Recorded Last Taken Type Aspirin EC [Halfprin EC] 81 mg PO DAILY #100 tablet 05/06/19 Unknown Rx AtorvaSTATin [Lipitor] 40 mg PO HS #30 tablet 05/06/19 Unknown Rx Clopidogrel [Plavix] 75 mg PO QDAY #30 tablet 05/06/19 Unknown Rx Ferrous Sulfate [Feosol 325 MG tab] 325 mg PO DAILY #30 tablet 05/06/19 Unknown Rx ISOSORBIDE MONOnitrate [Imdur ER] 30 mg PO DAILY #30 tab.er.24h 05/06/19 Unknown Rx Pantoprazole [Protonix INJ] 40 mg PO QDAY #30 vial 05/06/19 Unknown Rx Allergies Allergy/AdvReac Type Severity Reaction Status Date / Time No Known Allergies Allergy Verified 08/11/16 06:45 ED Review of Systems ROS: Stated complaint: WEAKNESS/NAUSEA Other details as noted in HPI Constitutional: denies: chills, fever Eyes: denies: eye pain, eye discharge, vision change ENT: denies: ear pain, throat pain Respiratory: denies: cough, shortness of breath, wheezing Cardiovascular: dyspnea on exertion. denies: chest pain, palpitations Endocrine: no symptoms reported Gastrointestinal: melena. denies: abdominal pain, nausea, diarrhea Genitourinary: denies: urgency, dysuria, discharge Musculoskeletal: denies: back pain, joint swelling, arthralgia Skin: denies: rash, lesions Neurological: weakness. denies: headache, paresthesias Psychiatric: denies: anxiety, depression Hematological/Lymphatic: denies: easy bleeding, easy bruising ED Past Medical Hx - Past Medical History Previous Medical History?: Yes Hx Hypertension: Yes Hx Heart Attack/AMI: Yes Hx GERD: Yes Hx HIV: No Additional medical history: anemia - Surgical History Past Surgical History?: Yes Additional Surgical History: angioplasty - Family History Family history: no significant - Social History Smoking Status: Current Every Day Smoker Substance Use Type: None - Medications Home Medications: Home Medications Medication Instructions Recorded Confirmed Last Taken Type Aspirin EC [Halfprin EC] 81 mg PO DAILY #100 tablet 05/06/19 Unknown Rx AtorvaSTATin [Lipitor] 40 mg PO HS #30 tablet 05/06/19 Unknown Rx Clopidogrel [Plavix] 75 mg PO QDAY #30 tablet 05/06/19 Unknown Rx Ferrous Sulfate [Feosol 325 MG tab] 325 mg PO DAILY #30 tablet 05/06/19 Unknown Rx ISOSORBIDE MONOnitrate [Imdur ER] 30 mg PO DAILY #30 tab.er.24h 05/06/19 Unknown Rx Pantoprazole [Protonix INJ] 40 mg PO QDAY #30 vial 05/06/19 Unknown Rx ED Physical Exam - General Limitations: No Limitations General appearance: alert, in no apparent distress - Head Head exam: Present: atraumatic, normocephalic - Eye Eye exam: Present: normal appearance, PERRL Pupils: Present: normal accommodation - ENT ENT exam: Present: mucous membranes moist - Neck Neck exam: Present: normal inspection - Respiratory Respiratory exam: Present: normal lung sounds bilaterally. Absent: respiratory distress, wheezes, rales - Cardiovascular Cardiovascular Exam: Present: regular rate, normal rhythm. Absent: systolic murmur, diastolic murmur, rubs, gallop - GI/Abdominal GI/Abdominal exam: Present: soft, normal bowel sounds. Absent: distended, ten derness, guarding - Rectal Rectal exam: Present: normal inspection, normal rectal tone, heme (+) stool, black stool - Extremities Exam Extremities exam: Present: normal inspection - Back Exam Back exam: Present: normal inspection - Neurological Exam Neurological exam: Present: alert, oriented X3 - Psychiatric Psychiatric exam: Present: normal affect, normal mood - Skin Skin exam: Present: warm, dry, intact, normal color. Absent: rash ED Course Vital Signs 06/28/19 06/28/19 17:01 18:07 Temperature 97.3 F L 97.4 F L Pulse Rate 113 H 104 H Respiratory 18 18 Rate Blood Pressure 143/67 Blood Pressure 135/79 [Left] O2 Sat by Pulse 99 100 Oximetry - Reevaluation(s) Reevaluation #1: I discussed all results with patient. I discussed plan of care outpatient. Patient will be admitted to the hospital service. Patient agrees plan of care and admission. 06/28/19 20:46 - Consultations Consultation #1: GI paged 06/28/19 20:12 I discussed the case with Dr. Castro. Dr. Castro wants the patient to be admi tted to the hospitalist service, IV Protonix, transfused and NPO after midnight. 06/28/19 20:40 Consultation #2: Was consult for admission. Hospitalist to admit patient. Orders place. 06/28/19 20:43 ED Medical Decision Making - Lab Data Result diagrams: 06/28/19 17:58 06/28/19 17:58 - EKG Data -: EKG Interpreted by Me EKG shows normal: sinus rhythm, axis, intervals, QRS complexes, ST-T waves Rate: normal - Radiology Data Radiology results: report reviewed, image reviewed interpreted by me: No acute findings on chest x-ray. - Medical Decision Making Patient is a 69 -year-old female that presented to the emergency room with complaints of melena, dyspnea on exertion and weakness. Patient denied having shortness of breath if she was resting. Patient's guaiac positive. GI consult. Patient admitted to the hospital service. Labs remarkable for anemia. Due to the fact the patient has a CAD history the patient was typed and screened and crossed for 1 unit. - Differential Diagnosis melena. GI bleed. Weakness. KIARN. Critical Care Time: Yes Critical care time in (mins) excluding proc time.: 35 Critical care attestation.: If time is entered above; I have spent that time in minutes in the direct care of this critically ill patient, excluding procedure time. Critical Care Time: 35 minutes ED Disposition Clinical Impression: Tachycardia, KIRAN (dyspnea on exertion), Weakness GI bleed Qualifiers: GI bleed type/associated pathology: melena Qualified Code(s): K92.1 - Melena Anemia Qualifiers: Anemia type: unspecified type Qualified Code(s): D64.9 - Anemia, unspecified CAD (coronary artery disease) Qualifiers: Coronary Disease-Associated Artery/Lesion type: unspecified vessel or lesion type [place] vs. transplanted heart: [place] heart Associated angina: angina presence unspecified Qualified Code(s): I25.10 - Atherosclerotic heart disease of [place] coronary artery without angina pectoris Disposition: DC-09 OP ADMIT IP TO THIS HOSP Is pt being admited?: Yes Does the pt Need Aspirin: No Condition: Critical Time of Disposition: 20:48
[2019-06-28] MEDS ORDERED: PANTOPRAZOLE 40 MG INJ IV ONE (20:40)
[2019-06-28] MEDS ORDERED: SODIUM CHLORIDE 0.9% 500 ML 500 ML IV ONE (21:19)
[2019-06-28] MEDS ORDERED: ONDANSETRON 4 MG/2 ML INJ IV PRN (21:35)
[2019-06-28] MEDS ORDERED: ACETAMINOPHEN 325 MG TAB PO PRN (21:35)
[2019-06-28] MEDS ORDERED: MORPHINE 2 MG/1 ML INJ IV PRN (21:35)
--- NOTE | 2019-06-28 22:45 | History and Physical Report ---
History of Present Illness Date of examination: 06/28/19 Date of admission: 06/28/19 20:44 Chief complaint: GI Bleed History of present illness: 69-year-old female with known history of coronary artery disease hyperlipidemia GERD peripheral vascular disease with known history of angioplasty presented to the emergency room today complaining of bloody stool. She indicates that she has had occasional blood in stool and at times and stool is dark-colored. She has had occasional shortness of breath on exertion but denies any chest pain. She denies any nausea vomiting and she feels dizzy occasionally. How work-up in the emergency room shows Hemoccult positive stool and a CBC shows a hemoglobin of about 8. [employer] Writer on-call has been notified by the ER physician for possible evaluation in the a.m. Past History Past Medical History: CAD, GERD, hyperlipidemia Past Surgical History: Other (History of angioplasty) Social history: smoking (Smokes about half a pack of cigarettes daily), other (Uses marijuana almost on a daily basis) Family history: other (Mother had multiple myeloma) Medications and Allergies Allergies Allergy/AdvReac Type Severity Reaction Status Date / Time No Known Allergies Allergy Verified 08/11/16 06:45 Home Medications Medication Instructions Recorded Confirmed Last Taken Type Aspirin EC [Halfprin EC] 81 mg PO DAILY #100 tablet 05/06/19 06/28/19 1 Day Ago Rx ~06/27/19 AtorvaSTATin [Lipitor] 40 mg PO HS #30 tablet 05/06/19 06/28/19 1 Day Ago Rx ~06/27/19 Clopidogrel [Plavix] 75 mg PO QDAY #30 tablet 05/06/19 06/28/19 1 Day Ago Rx ~06/27/19 Ferrous Sulfate [Feosol 325 MG tab] 325 mg PO DAILY #30 tablet 05/06/19 06/28/19 1 Day Ago Rx ~06/27/19 ISOSORBIDE MONOnitrate [Imdur ER] 30 mg PO DAILY #30 tab.er.24h 05/06/19 06/28/19 1 Day Ago Rx ~06/27/19 Pantoprazole [Protonix INJ] 40 mg PO QDAY #30 vial 05/06/19 06/28/19 1 Day Ago Rx ~06/27/19 Active Meds: Active Medications Acetaminophen (Tylenol) 650 mg PO Q4H PRN PRN Reason: Pain MILD(1-3)/Fever >100.5/MARTINEZ Sodium Chloride (Nacl 0.9% 1000 Ml) 1,000 mls @ 75 mls/hr IV DIRECT BAR Morphine Sulfate (Morphine) 2 mg IV Q4H PRN PRN Reason: Pain, Moderate (4-6) Ondansetron HCl (Zofran) 4 mg IV Q8H PRN PRN Reason: Nausea And Vomiting Sodium Chloride (Sodium Chloride Flush Syringe 10 Ml) 10 ml IV BID BAR Sodium Chloride (Sodium Chloride Flush Syringe 10 Ml) 10 ml IV PRN PRN PRN Reason: LINE FLUSH Review of Systems Gastrointestinal: hematochezia Exam - Constitutional Vitals: Temp Pulse Resp BP Pulse Ox 97.4 F L 97 H 19 143/67 100 06/28/19 18:07 06/28/19 21:30 06/28/19 21:30 06/28/19 18:07 06/28/19 21:30 General appearance: Present: no acute distress - EENT Eyes: Present: PERRL, EOM intact ENT: hearing intact, clear oral mucosa, dentition normal - Neck Neck: Present: supple, normal ROM - Respiratory Respiratory effort: normal Respiratory: bilateral: CTA - Cardiovascular Rhythm: regular Heart Sounds: Present: S1 & S2 - Extremities Extremities: no ischemia, No edema, Full ROM Peripheral Pulses: within normal limits - Abdominal General gastrointestinal: Present: soft, non-tender, non-distended - Integumentary Integumentary: Present: clear, warm, dry, pale - Musculoskeletal Musculoskeletal: strength equal bilaterally - Psychiatric Psychiatric: appropriate mood/affect, intact judgment & insight - Neurologic Neurologic: CNII-XII intact, moves all extremities Results - Labs CBC & Chem 7: 06/28/19 17:58 06/28/19 17:58 Labs: Abnormal lab results 06/28/19 06/28/19 06/28/19 Range/Units 17:58 17:58 20:45 RBC 2.68 L (3.65-5.03) M/mm3 Hgb 8.0 L (10.1-14.3) gm/dl Hct 24.5 L (30.3-42.9) % RDW 16.8 H (13.2-15.2) % Potassium 3.5 L (3.6-5.0) mmol/L Carbon Dioxide 18 L (22-30) mmol/L BUN 26 H (7-17) mg/dL Glucose 176 H (65-100) mg/dL Crossmatch See Detail Assessment and Plan - Patient Problems (1) GI bleed Current Visit: Yes Status: Acute Qualifiers: GI bleed type/associated pathology: melena Qualified Code(s): K92.1 - Melena Plan to address problem: Will monitor CBC. Blood up has been typed and screened for possible blood transfusion if needed. Patient will be evaluated by the primary care nurse practitioner in the a.m. (2) Anemia Current Visit: Yes Status: Chronic Qualifiers: Anemia type: unspecified type Qualified Code(s): D64.9 - Anemia, unspecified Plan to address problem: Possibly secondary to GI bleed. Will transfuse with packed red blood cells if needed (3) Hypertension Current Visit: No Status: Chronic Plan to address problem: We will continue to monitor vital signs and continue patient on her routine home medications. (4) PVD (peripheral vascular disease) with claudication Current Visit: No Status: Chronic Plan to address problem: We will continue patient on her routine home medications. (5) Tobacco abuse Current Visit: No Status: Chronic Plan to address problem: Patient counseled on quitting tobacco use. (6) DVT (deep venous thrombosis) Current Visit: Yes Status: Acute Plan to address problem: Will place on sequential compression device. (7) Full code status Current Visit: Yes Status: Acute
[2019-06-28] MEDS: SODIUM CHLORIDE 0.9% 1000 ML 1,000 ML IV SCH (22:50)
[2019-06-28 23:32] LABS: Bacteria,Urine 1+ /HPF (Negative); Bilirubin,Urine NEG (Negative); Blood,Urine SM (Negative); Color,Urine Yellow (Yellow); Mucus,Urine FEW /HPF; Urobilinogen,Urine < 2.0 mg/dL (<2.0)
[2019-06-28 23:48] LABS: Amphetamine Screen,Urine PRESUMPTIVE NEGATIVE; Benzodiazepines Screen,Urine PRESUMPTIVE NEGATIVE; Cocaine Screen,Urine PRESUMPTIVE NEGATIVE; Methadone Screen,Urine PRESUMPTIVE NEGATIVE; Opiate Screen,Urine PRESUMPTIVE NEGATIVE
[2019-06-29 00:02] LABS: Cannabinoid Screen,Urine PRESUMPTIVE POSITIVE
--- NOTE | 2019-06-29 08:20 | Gastroenterology Consultation ---
History of Present Illness - Reason for Consult Consult date: 06/29/19 melena Requesting physician: DAVID WARD - History of Present Illness This is a 69 yo female with pmh of chronic iron deficiency anemia, CAD on ASA (plavix has been held since last admission in 04/2019 for GI bleed), and HTN admitted overnight for GI bleeding. She reports having dark stools since Tuesday, once daily. Yesterday she felt weak in her legs. No abdominal pain, bright red blood in the stool, or diarrhea. No nausea/vomiting. She did not resume plavix since 04/2019 admission, when she was admitted for BRBPR and had colonoscopy showing cecal AVM nonbleeding and treated with cautery and clip placement. She recently had EGD and colonoscopy with Dr. Nicholson as outpatient for work up of anemia prior to 04/2019 admission. EGD showed duodenitis (path showing duodenitis) and colonoscopy showed a small nonbleeding angioectasia in the cecum along with four small polyps (TA) removed. Prep was fair. Colonoscopy in 04/2019 FINDINGS: * 3mm AVM in the cecum, not actively bleeding; as this was the putative source for bleeding the AVM was cauterized with the snare. This ablated the AVM but there was oozing from the AVM which did not stop. therefore 3 clips were placed in a row to "zipper" the mucosal defect and hemostasis was attained * 3 small sessile polyps in the ascending colon, from 2-5mm in diameter, all removed with cold snare polypectomy. EBL minimal * 2 sessile polyps in the sigmoid colon, 2-3mm in diameter, removed with cold biopsy polypectomy. EBL minimal * Small internal hemorrhoid * Moderate amount of thick liquid stool obscuring views of the colon * Remainder of the exam was normal Medication list reviewed Past History Past Medical History: CAD, GERD, hyperlipidemia Past Surgical History: Other (History of angioplasty) Social history: smoking (Smokes about half a pack of cigarettes daily), other (Uses marijuana almost on a daily basis) Family history: other (Mother had multiple myeloma) Medications and Allergies Allergies Allergy/AdvReac Type Severity Reaction Status Date / Time No Known Allergies Allergy Verified 08/11/16 06:45 Home Medications Medication Instructions Recorded Confirmed Last Taken Type Aspirin EC [Halfprin EC] 81 mg PO DAILY #100 tablet 05/06/19 06/28/19 1 Day Ago Rx ~06/27/19 AtorvaSTATin [Lipitor] 40 mg PO HS #30 tablet 05/06/19 06/28/19 1 Day Ago Rx ~06/27/19 Clopidogrel [Plavix] 75 mg PO QDAY #30 tablet 05/06/19 06/28/19 1 Day Ago Rx ~06/27/19 Ferrous Sulfate [Feosol 325 MG tab] 325 mg PO DAILY #30 tablet 05/06/19 06/28/19 1 Day Ago Rx ~06/27/19 ISOSORBIDE MONOnitrate [Imdur ER] 30 mg PO DAILY #30 tab.er.24h 05/06/19 06/28/19 1 Day Ago Rx ~06/27/19 Pantoprazole [Protonix INJ] 40 mg PO QDAY #30 vial 05/06/19 06/28/19 1 Day Ago Rx ~06/27/19 Active Meds: Active Medications Acetaminophen (Tylenol) 650 mg PO Q4H PRN PRN Reason: Pain MILD(1-3)/Fever >100.5/MARTINEZ Sodium Chloride (Nacl 0.9% 1000 Ml) 1,000 mls @ 75 mls/hr IV DIRECT [facility] Last Admin: 06/28/19 22:50 Dose: 75 mls/hr Documented by: Pantoprazole Sodium 80 mg/ (Sodium Chloride) 100 mls @ 10 mls/hr IV DIRECT BAR Morphine Sulfate (Morphine) 2 mg IV Q4H PRN PRN Reason: Pain, Moderate (4-6) Ondansetron HCl (Zofran) 4 mg IV Q8H PRN PRN Reason: Nausea And Vomiting Sodium Chloride (Sodium Chloride Flush Syringe 10 Ml) 10 ml IV BID [facility] Last Admin: 06/28/19 22:51 Dose: 10 ml Documented by: Sodium Chloride (Sodium Chloride Flush Syringe 10 Ml) 10 ml IV PRN PRN PRN Reason: LINE FLUSH Review of Systems - Review of Systems All systems: negative Constitutional: no weight loss, no weight gain Cardiovascular: no chest pain Respiratory: no cough, no shortness of breath Gastrointestinal: melena, no abdominal pain, no nausea, no vomiting, no BRBPR Neurological: weakness Exam - Constitutional Vital Signs: Temp Pulse Resp BP Pulse Ox 98.5 F 114 H 18 94/70 100 06/29/19 04:32 06/29/19 04:30 06/29/19 04:30 06/29/19 04:30 06/29/19 04:30 General appearance: no acute distress, well-nourished - EENT Eyes: EOM intact ENT: hearing intact - Neck Neck: supple - Respiratory Respiratory effort: normal - Cardiovascular Rhythm: regular Heart Sounds: Present: S1 & S2 - Gastrointestinal General gastrointestinal: Present: soft, non-tender, non-distended, normal bowel sounds - Integumentary Integumentary: Present: clear, warm - Neurologic Neurological: alert and oriented x3 - Labs CBC & Chem 7: 06/28/19 17:58 06/28/19 17:58 Lab Results: Laboratory Results - last 24 hr 06/28/19 06/28/19 06/28/19 17:58 17:58 17:58 WBC 8.7 RBC 2.68 L Hgb 8.0 L Hct 24.5 L MCV 92 MCH 30 MCHC 33 RDW 16.8 H Plt Count 384 Lymph % (Auto) 24.7 Cannon % (Auto) 5.5 Eos % (Auto) 0.6 Baso % (Auto) 0.6 Lymph # 2.2 Cannon # 0.5 Eos # 0.1 Baso # 0.1 Seg Neutrophils % 68.6 Seg Neutrophils # 6.0 PT 13.8 INR 1.07 APTT 26.9 Sodium 140 Potassium 3.5 L Chloride 106.8 Carbon Dioxide 18 L Anion Gap 19 BUN 26 H Creatinine 0.8 Estimated GFR > 60 BUN/Creatinine Ratio 33 Glucose 176 H Calcium 9.1 Total Bilirubin < 0.20 AST 16 ALT 15 Alkaline Phosphatase 115 Troponin T Total Protein 6.7 Albumin 3.9 Albumin/Globulin Ratio 1.4 Urine Color Urine Turbidity Urine pH Ur Specific Rupert Urine Protein Urine Glucose (UA) Urine Ketones Urine Blood Urine Nitrite Urine Bilirubin Urine Urobilinogen Ur Leukocyte Esterase Urine WBC (Auto) Urine RBC (Auto) U Epithel Cells (Auto) Urine Bacteria (Auto) Urine Mucus Urine Opiates Screen Urine Methadone Screen Ur Barbiturates Screen Ur Phencyclidine Scrn Ur Amphetamines Screen U Benzodiazepines Scrn Urine Cocaine Screen U Marijuana (THC) Screen Drugs of Abuse Note Blood Type Antibody Screen Crossmatch 06/28/19 06/28/19 06/28/19 17:58 20:45 22:50 WBC RBC Hgb Hct MCV MCH MCHC RDW Plt Count Lymph % (Auto) Cannon % (Auto) Eos % (Auto) Baso % (Auto) Lymph # Cannon # Eos # Baso # Seg Neutrophils % Seg Neutrophils # PT INR APTT Sodium Potassium Chloride Carbon Dioxide Anion Gap BUN Creatinine Estimated GFR BUN/Creatinine Ratio Glucose Calcium Total Bilirubin AST ALT Alkaline Phosphatase Troponin T < 0.010 Total Protein Albumin Albumin/Globulin Ratio Urine Color Yellow Urine Turbidity Clear Urine pH 5.0 Ur Specific Rupert 1.019 Urine Protein 30 mg/dl Urine Glucose (UA) Neg Urine Ketones Tr Urine Blood Sm Urine Nitrite Neg Urine Bilirubin Neg Urine Urobilinogen < 2.0 Ur Leukocyte Esterase Tr Urine WBC (Auto) 4.0 Urine RBC (Auto) 3.0 U Epithel Cells (Auto) 1.0 Urine Bacteria (Auto) 1+ Urine Mucus Few Urine Opiates Screen Urine Methadone Screen Ur Barbiturates Screen Ur Phencyclidine Scrn Ur Amphetamines Screen U Benzodiazepines Scrn Urine Cocaine Screen U Marijuana (THC) Screen Drugs of Abuse Note Blood Type O POSITIVE Antibody Screen Negative Crossmatch See Detail 06/28/19 23:10 WBC RBC Hgb Hct MCV MCH MCHC RDW Plt Count Lymph % (Auto) Cannon % (Auto) Eos % (Auto) Baso % (Auto) Lymph # Cannon # Eos # Baso # Seg Neutrophils % Seg Neutrophils # PT INR APTT Sodium Potassium Chloride Carbon Dioxide Anion Gap BUN Creatinine Estimated GFR BUN/Creatinine Ratio Glucose Calcium Total Bilirubin AST ALT Alkaline Phosphatase Troponin T Total Protein Albumin Albumin/Globulin Ratio Urine Color Urine Turbidity Urine pH Ur Specific Rupert Urine Protein Urine Glucose (UA) Urine Ketones Urine Blood Urine Nitrite Urine Bilirubin Urine Urobilinogen Ur Leukocyte Esterase Urine WBC (Auto) Urine RBC (Auto) U Epithel Cells (Auto) Urine Bacteria (Auto) Urine Mucus Urine Opiates Screen Presumptive negative Urine Methadone Screen Presumptive negative Ur Barbiturates Screen Presumptive negative Ur Phencyclidine Scrn Presumptive negative Ur Amphetamines Screen Presumptive negative U Benzodiazepines Scrn Presumptive negative Urine Cocaine Screen Presumptive negative U Marijuana (THC) Screen Presumptive positive Drugs of Abuse Note Disclamer Blood Type Antibody Screen Crossmatch Assessment and Plan This is a 69 yo female with pmh of chronic iron deficiency anemia, CAD on ASA (plavix has been held since last admission in 04/2019 for GI bleed), and HTN admitted overnight for GI bleeding. # Melena # Acute on chronic iron deficiency anemia - last admission in 04/2019 when she was admitted for BRBPR and had colonoscopy showing cecal AVM nonbleeding and treated with cautery and clip placement. - outpatient EGD and colonoscopy with Dr. Nicholson prior to 04/2019 admission. EGD showed duodenitis (path showing duodenitis) and colonoscopy showed a small nonbleeding angioectasia in the cecum along with four small polyps (TA) removed. Prep was fair. - HD stable. - Hgb at 9. Rec - keep NPO - protonix IV - monitor H/H. - will plan for EGD today. - hold anticoagulation.
[2019-06-29] MEDS ORDERED: PANTOPRAZOLE 80 MG in SODIUM CHLORIDE 0.9% 100 ML IV SCH (09:00)
[2019-06-29] MEDS ORDERED: SODIUM CHLORIDE 0.9% 1000 ML 1,000 ML IV ONE (09:00)
[2019-06-29 10:29] LABS: Basophils # (Auto) 0.1 K/mm3 (0.0-0.1); Basophils % (Auto) 0.9 % (0.0-1.8); Eosinophils % (Auto) 0.4 % (0.0-4.3); Hematocrit 26.6 % (30.3-42.9); Hemoglobin 8.7 gm/dl (10.1-14.3); Lymphocytes # (Auto) 1.6 K/mm3 (1.2-5.4); Lymphocytes % (Auto) 22.1 % (13.4-35.0); Mean Corpuscular HGB Conc 33 % (30-34); Mean Corpuscular Volume 89 fl (79-97); Monocytes # (Auto) 0.5 K/mm3 (0.0-0.8); Monocytes % (Auto) 6.7 % (0.0-7.3); Platelet Count 304 K/mm3 (140-440); Red Blood Count 2.99 M/mm3 (3.65-5.03); Red Cell Distribution Width 16.4 % (13.2-15.2)
[2019-06-29 10:38] LABS: INR 1.18 (0.87-1.13)
[2019-06-29 10:54] LABS: BUN/Creatinine Ratio 21; Blood Urea Nitrogen 17 mg/dL (7-17); Calcium 8.7 mg/dL (8.4-10.2); Hemolysis Index 3
--- NOTE | 2019-06-29 12:22 | Progress Note ---
Assessment and Plan Assessment and plan: 69-year-old female with known history of coronary artery disease hyperlipidemia GERD peripheral vascular disease with known history of angioplasty presented to the emergency room today complaining of bloody stool. She indicates that she has had occasional blood in stool and at times and stool is dark-colored. She has had occasional shortness of breath on exertion but denies any chest pain. She denies any nausea vomiting and she feels dizzy occasionally. How work-up in the emergency room shows Hemoccult positive stool and a CBC shows a hemoglobin of about 8. (1) GI bleed Current Visit: Yes Status: Acute Qualifiers: GI bleed type/associated pathology: melena Qualified Code(s): K92.1 - Melena Plan to address problem: Will monitor CBC. Blood up has been typed and screened for possible blood transfusion if needed. Endoscopy planned for today (2) Anemia Current Visit: Yes Status: Chronic Qualifiers: Anemia type: unspecified type Qualified Code(s): D64.9 - Anemia, unspecified Plan to address problem: Possibly secondary to GI bleed. Will transfuse with packed red blood cells if needed (3) Hypertension Current Visit: No Status: Chronic Plan to address problem: We will continue to monitor vital signs and continue patient on her routine home medications. (4) PVD (peripheral vascular disease) with claudication Current Visit: No Status: Chronic Plan to address problem: We will continue patient on her routine home medications. (5) Tobacco abuse Current Visit: No Status: Chronic Plan to address problem: Patient counseled on quitting tobacco use. (6) DVT (deep venous thrombosis) Current Visit: Yes Status: Acute Plan to address problem: Will place on sequential compression device. (7) Full code status Current Visit: Yes Status: Acute History Interval history: Patient seen and examined resting comfortably. Patient is awaiting EGD. Hospitalist Physical - Constitutional Vitals: Temp Pulse Resp BP Pulse Ox 99.0 F 91 H 16 130/64 98 06/29/19 08:59 06/29/19 09:03 06/29/19 09:03 06/29/19 08:59 06/29/19 09:03 General appearance: Present: no acute distress, well-nourished - EENT Eyes: Present: PERRL, EOM intact ENT: clear oral mucosa - Neck Neck: Present: supple, normal ROM - Respiratory Respiratory effort: normal Respiratory: bilateral: CTA - Cardiovascular Rhythm: regular Heart Sounds: Present: S1 & S2. Absent: systolic murmur, diastolic murmur - Extremities Extremities: no ischemia, pulses intact, pulses symmetrical, No edema, normal temperature, normal color, Full ROM Peripheral Pulses: within normal limits - Abdominal General gastrointestinal: soft, non-tender, non-distended, normal bowel sounds - Integumentary Integumentary: Present: clear, warm, dry - Psychiatric Psychiatric: appropriate mood/affect, intact judgment & insight, memory intact - Neurologic Neurologic: CNII-XII intact, moves all extremities - Allied Health Allied health notes reviewed: nursing Results - Labs CBC & Chem 7: 06/29/19 10:02 06/29/19 10:02 Labs: Laboratory Last Values WBC 7.3 K/mm3 (4.5-11.0) 06/29/19 10:02 RBC 2.99 M/mm3 (3.65-5.03) L 06/29/19 10:02 Hgb 8.7 gm/dl (10.1-14.3) L 06/29/19 10:02 Hct 26.6 % (30.3-42.9) L 06/29/19 10:02 MCV 89 fl (79-97) 06/29/19 10:02 MCH 29 pg (28-32) 06/29/19 10:02 MCHC 33 % (30-34) 06/29/19 10:02 RDW 16.4 % (13.2-15.2) H 06/29/19 10:02 Plt Count 304 K/mm3 (140-440) 06/29/19 10:02 Lymph % (Auto) 22.1 % (13.4-35.0) 06/29/19 10:02 [place] % (Auto) 6.7 % (0.0-7.3) 06/29/19 10:02 Eos % (Auto) 0.4 % (0.0-4.3) 06/29/19 10:02 Baso % (Auto) 0.9 % (0.0-1.8) 06/29/19 10:02 Lymph # 1.6 K/mm3 (1.2-5.4) 06/29/19 10:02 Archer # 0.5 K/mm3 (0.0-0.8) 06/29/19 10:02 Eos # 0.0 K/mm3 (0.0-0.4) 06/29/19 10:02 Baso # 0.1 K/mm3 (0.0-0.1) 06/29/19 10:02 Seg Neutrophils % 69.9 % (40.0-70.0) 06/29/19 10:02 Seg Neutrophils # 5.1 K/mm3 (1.8-7.7) 06/29/19 10:02 PT 14.9 Sec. (12.2-14.9) 06/29/19 10:02 INR 1.18 (0.87-1.13) H 06/29/19 10:02 APTT 29.0 Sec. (24.2-36.6) 06/29/19 10:02 Sodium 145 mmol/L (137-145) 06/29/19 10:02 Potassium 3.9 mmol/L (3.6-5.0) 06/29/19 10:02 Chloride 111.6 mmol/L (98-107) H 06/29/19 10:02 Carbon Dioxide 20 mmol/L (22-30) L 06/29/19 10:02 Anion Gap 17 mmol/L 06/29/19 10:02 BUN 17 mg/dL (7-17) 06/29/19 10:02 Creatinine 0.8 mg/dL (0.7-1.2) 06/29/19 10:02 Estimated GFR > 60 ml/min 06/29/19 10:02 BUN/Creatinine Ratio 21 % 06/29/19 10:02 Glucose 97 mg/dL (65-100) 06/29/19 10:02 Calcium 8.7 mg/dL (8.4-10.2) 06/29/19 10:02 Total Bilirubin < 0.20 mg/dL (0.1-1.2) 06/28/19 17:58 AST 16 units/L (5-40) 06/28/19 17:58 ALT 15 units/L (7-56) 06/28/19 17:58 Alkaline Phosphatase 115 units/L (35-129) 06/28/19 17:58 Troponin T < 0.010 ng/mL (0.00-0.029) 06/28/19 17:58 Total Protein 6.7 g/dL (6.3-8.2) 06/28/19 17:58 Albumin 3.9 g/dL (3.9-5) 06/28/19 17:58 Albumin/Globulin Ratio 1.4 % 06/28/19 17:58 Urine Color Yellow (Yellow) 06/28/19 22:50 Urine Turbidity Clear (Clear) 06/28/19 22:50 Urine pH 5.0 (5.0-7.0) 06/28/19 22:50 Ur Specific [place] 1.019 (1.003-1.030) 06/28/19 22:50 Urine Protein 30 mg/dl mg/dL (Negative) 06/28/19 22:50 Urine Glucose (UA) Neg mg/dL (Negative) 06/28/19 22:50 Urine Ketones Tr mg/dL (Negative) 06/28/19 22:50 Urine Blood Sm (Negative) 06/28/19 22:50 Urine Nitrite Neg (Negative) 06/28/19 22:50 Urine Bilirubin Neg (Negative) 06/28/19 22:50 Urine Urobilinogen < 2.0 mg/dL (<2.0) 06/28/19 22:50 Ur Leukocyte Esterase Tr (Negative) 06/28/19 22:50 Urine WBC (Auto) 4.0 /HPF (0.0-6.0) 06/28/19 22:50 Urine RBC (Auto) 3.0 /HPF (0.0-6.0) 06/28/19 22:50 U Epithel Cells (Auto) 1.0 /HPF (0-13.0) 06/28/19 22:50 Urine Bacteria (Auto) 1+ /HPF (Negative) 06/28/19 22:50 Urine Mucus Few /HPF 06/28/19 22:50 Urine Opiates Screen Presumptive negative 06/28/19 23:10 Urine Methadone Screen Presumptive negative 06/28/19 23:10 Ur Barbiturates Screen Presumptive negative 06/28/19 23:10 Ur Phencyclidine Scrn Presumptive negative 06/28/19 23:10 Ur Amphetamines Screen Presumptive negative 06/28/19 23:10 U Benzodiazepines Scrn Presumptive negative 06/28/19 23:10 Urine Cocaine Screen Presumptive negative 06/28/19 23:10 U Marijuana (THC) Screen Presumptive positive 06/28/19 23:10 Drugs of Abuse Note Disclamer 06/28/19 23:10 Blood Type O POSITIVE 06/28/19 20:45 Antibody Screen Negative 06/28/19 20:45 Crossmatch See Detail 06/28/19 20:45 Active Medications - Current Medications Current Medications: Generic Name Dose Route Start Last Admin Trade Name Freq PRN Reason Stop Dose Admin Acetaminophen 650 mg 06/28/19 21:35 Tylenol PO Q4H PRN Pain MILD(1-3)/Fever >100.5/MARTINEZ Sodium Chloride 1,000 mls @ 75 mls/hr 06/28/19 22:00 06/28/19 22:50 Nacl 0.9% 1000 Ml IV 75 mls/hr DIRECT BAR Administration Pantoprazole Sodium 80 mg/ 100 mls @ 10 mls/hr 06/29/19 09:00 06/29/19 10:09 Sodium Chloride IV 8 mg/hr DIRECT BAR 10 mls/hr Administration 8 MG/HR Morphine Sulfate 2 mg 06/28/19 21:35 Morphine IV Q4H PRN Pain, Moderate (4-6) Ondansetron HCl 4 mg 06/28/19 21:35 Zofran IV Q8H PRN Nausea And Vomiting Sodium Chloride 10 ml 06/28/19 22:00 06/29/19 10:10 Sodium Chloride Flush Syringe 10 Ml IV 10 ml BID BAR Administration Sodium Chloride 10 ml 06/28/19 21:35 Sodium Chloride Flush Syringe 10 Ml IV PRN PRN LINE FLUSH
[2019-06-29] MEDS: SODIUM CHLORIDE 0.9% 1000 ML 1,000 ML IV SCH (13:52)
[2019-06-29] MEDS ORDERED: SODIUM CHLORIDE 0.9% 1000 ML 1,000 ML IV SCH (15:00)
--- NOTE | 2019-06-29 15:08 | Anesthesia Day of Surgery ---
Anesthesia Day of Surgery - Day of Surgery Patient Examined: Yes Patient H&P Reviewed: Yes Patient is NPO: Yes
--- NOTE | 2019-06-29 15:10 | Anesthesia Consultation ---
Anesthesia Consult and Med Hx Date of service: 06/29/19 - Airway Anesthetic Teeth Evaluation: Good, Partials ROM Head & Neck: Adequate Mental/Hyoid Distance: Adequate Mallampati Class: Class II Intubation Access Assessment: Good - Pre-Operative Health Status ASA Pre-Surgery Classification: ASA3 Proposed Anesthetic Plan: MAC - Pulmonary Hx Smoking: Yes - Cardiovascular System Hx Hypertension: Yes Hx Coronary Artery Disease: Yes Hx Heart Attack/AMI: Yes ([id number]; Medical managment; saw Dr. Conner last month- ok per pt) Hx Peripheral Vascular Disease: Yes (Stents in legs) - Central Nervous System Hx Psychiatric Problems: No - Gastrointestinal Hx Gastroesophageal Reflux Disease: Yes - Hematic Hx Anemia: Yes - Other Systems Hx Cancer: No
[2019-06-29] MEDS ORDERED: PROPOFOL 200 MG/20 ML VIAL IV ONE (15:52)
[2019-06-29] MEDS ORDERED: METOPROLOL TARTRATE 5 MG/5 ML INJ IV ONE (16:11)
--- NOTE | 2019-06-29 16:18 | Operative Report ---
Operative Report Operative Report: Esophagogastroduodenoscopy Procedure Note with APC/Control of bleeding Date of procedure: 06/29/2019 Endoscopist: Delroy Nicholson Pre-op diagnosis: Melena, GI bleed Post-op diagnosis: Duodenal AVM's s/p APC treatment Anesthesia: MAC Complications: No immediate complications Estimated blood loss: minimal Procedure: After consent was obtained, the patient was placed in the left lateral decubitus position. The olympus endoscope was inserted into the patient's mouth under direct vision, and advanced into the 2nd portion of the duodenum without difficulty. The patient tolerated the procedure well. The views of the mucosa were good. Patient's vital signs were monitored continuously throughout the procedure. Findings: The esophagus appeared normal. The stomach appeared normal. There were two to three small AVM's in the duodenal sweep and 2nd portion of the duodenum. There was oozing of blood with contact. Hemostasis was achieved with APC treatment. There was no active bleeding at the end of the procedure. There was mild erythematous mucosa in the first portion of the duodenum. Impression: 1. 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 Recommendations: -monitor H/H and transfuse if hgb < 8. If labs stable tomorrow without further signs of bleeding, can be discharged from GI stand point. -continue iron replacement therapy daily -will start full liquid diet and can advance diet tomorrow if no further bleeding/stable labs
[2019-06-30 07:40] VITALS: BP 177/86
[2019-06-30 09:51] LABS: Hematocrit 26.2 % (30.3-42.9); Hemoglobin 8.5 gm/dl (10.1-14.3); Mean Corpuscular HGB Conc 33 % (30-34); Mean Corpuscular Volume 89 fl (79-97); Platelet Count 298 K/mm3 (140-440); Red Blood Count 2.94 M/mm3 (3.65-5.03); Red Cell Distribution Width 16.1 % (13.2-15.2)
--- NOTE | 2019-06-30 11:06 | Gastroenterology Progress Note ---
Assessment and Plan 1. GI bleed/melena - s/p EGD with duodenal avm's treated with APC. H/H stable and no further overt bleeding since procedure 2. Iron deficiency anemia -cont iron replacement (oral BID) at discharge. outpatient pill cam scheduled for first week of July. okay to be discharged from gi stand point. will sign off, please call as needed or with questions. Subjective Date of service: 06/30/19 Principal diagnosis: GI bleed Interval history: pt seen and examined; no bm's/bleeding episodes since procedure yesterday. denies abd pain, tolerating po Objective - Constitutional Vitals: Temp Pulse Resp BP Pulse Ox 98.4 F 94 H 16 177/86 98 06/30/19 07:36 06/30/19 07:36 06/30/19 10:47 06/30/19 07:36 06/30/19 07:36 General appearance: no acute distress - Respiratory Respiratory effort: normal Respiratory: bilateral: CTA - Cardiovascular Rhythm: regular Heart Sounds: Present: S1 & S2 - Gastrointestinal General gastrointestinal: Present: soft, non-tender, non-distended - Neurologic Neurological: alert and oriented x3 - Labs CBC & Chem 7: 06/30/19 09:07 06/29/19 10:02 Labs: Laboratory Results - last 24 hr 06/30/19 09:07 WBC 6.0 RBC 2.94 L Hgb 8.5 L Hct 26.2 L MCV 89 MCH 29 MCHC 33 RDW 16.1 H Plt Count 298
[2019-06-30] MEDS ORDERED: PANTOPRAZOLE 40 MG TAB PO SCH (12:00)
--- NOTE | 2019-06-30 14:03 | Discharge Summary ---
Providers - Providers Date of Admission: 06/28/19 20:44 Date of discharge: 06/30/19 Attending physician: PIPPA TAVAREZ 06/28/19 20:41 Consult to Physician [CONS] Routine Comment: Dr. Albright spoke with Dr. Felipe @ 2036 Consulting Provider: MERLIN FELIPE Physician Instructions: Reason For Exam: melena Primary care physician: CATHODE MAKER Hospitalization Condition: Good Hospital course: 69-year-old with a history of coronary artery disease hyperlipidemia GERD and PVD presented with black tarry stools GI bleeding. Anemia symptomatic. Patient presented black tarry stools. Workup colonoscopy EGD patient found to have a wide normal AVM with mild wheezing. Was treated with APC treatment. Patient hemoglobin and hematocrit stable. Stable for discharge. Disposition: DC-30 STILL A PATIENT - Discharge Diagnoses (1) CAD (coronary artery disease) Status: Acute Qualifiers: Coronary Disease-Associated Artery/Lesion type: unspecified vessel or lesion type [place] vs. transplanted heart: [place] heart Associated angina: angina presence unspecified Qualified Code(s): I25.10 - Atherosclerotic heart disease of [place] coronary artery without angina pectoris Comment: Patient remains chest pain-free throughout hospital stay. Anticoagulants. Resume after follow with primary care physician and GI. (2) GI bleed Status: Acute Qualifiers: GI bleed type/associated pathology: melena Qualified Code(s): K92.1 - Me familia Comment: We'll discontinue anticoagulation for coronary artery disease. K continue antilipid therapy. (3) Tachycardia Status: Acute (4) Weakness Status: Acute (5) Anemia Status: Chronic Qualifiers: Anemia type: unspecified type Qualified Code(s): D64.9 - Anemia, unspecified (6) Hyperlipidemia Status: Chronic (7) Hypertension Status: Chronic (8) Tobacco abuse Status: Chronic Core Measure Documentation - Palliative Care Palliative Care/ Comfort Measures: Not Applicable - Core Measures Any of the following diagnoses?: none Exam - Constitutional Vitals: Temp Pulse Resp BP Pulse Ox 98.4 F 94 H 16 177/86 98 06/30/19 07:36 06/30/19 07:36 06/30/19 10:47 06/30/19 07:36 06/30/19 07:36 General appearance: Present: no acute distress, well-nourished - EENT Eyes: Present: PERRL ENT: hearing intact, clear oral mucosa - Neck Neck: Present: supple, normal ROM - Respiratory Respiratory effort: normal Respiratory: bilateral: CTA - Cardiovascular Heart Sounds: Present: S1 & S2. Absent: rub, click - Extremities Extremities: pulses symmetrical, No edema Peripheral Pulses: within normal limits - Abdominal General gastrointestinal: Present: soft, non-tender, non-distended, normal bowel sounds Female genitourinary: Present: normal - Integumentary Integumentary: Present: clear, warm, dry - Musculoskeletal Musculoskeletal: gait normal, strength equal bilaterally - Psychiatric Psychiatric: appropriate mood/affect, intact judgment & insight - Neurologic Neurologic: CNII-XII intact, moves all extremities Plan Activity: other Weight Bearing Status: Full Weight Bearing Diet: low cholesterol, low salt Follow up with: PRIMARY CARE, [Primary Care Provider] - 7 Days Prescriptions: Ferrous Sulfate [Feosol 325 MG tab] 325 mg PO DAILY #30 tablet ISOSORBIDE MONOnitrate [Imdur ER] 30 mg PO DAILY #30 tab.er.24h AtorvaSTATin [Lipitor] 40 mg PO HS #30 tablet Pantoprazole [Protonix INJ] 40 mg PO QDAY #30 vial
--- NOTE | 2019-07-02 08:25 | Event Note ---
Date: 07/02/19 Patient called requesting medication change. She was discharged on Injectable protonix, Changed to PO. Sent to her pharmacy of choice on [address] per her request.
== END 2019-06-30 15:00 | disposition home or self-care (01) | DRG 379 ==
LOC: ED 16:44 → 2B-ACE 20:44 → 4A 21:54
PROVIDERS: ADMIT Internal Medicine Geriatric Medicine; ATTEND Internal Medicine
PROC: 30233N1 Transfusion of Nonautologous Red Blood Cells into Peripheral Vein, Percutaneous Approach (ICD-10-PCS; 2019-06-28)
PROC: 0W3P8ZZ Control Bleeding in Gastrointestinal Tract, Via Natural or Artificial Opening Endoscopic (ICD-10-PCS; principal; 2019-06-29)
DX: K31.811 Angiodysplasia of stomach and duodenum with bleeding (principal); I10 Essential (primary) hypertension; I73.9 Peripheral vascular disease, unspecified; I25.10 Atherosclerotic heart disease of native coronary artery without angina pectoris; K21.9 Gastro-esophageal reflux disease without esophagitis; R00.0 Tachycardia, unspecified; E78.5 Hyperlipidemia, unspecified; D50.0 Iron deficiency anemia secondary to blood loss (chronic); F17.210 Nicotine dependence, cigarettes, uncomplicated; F12.90 Cannabis use, unspecified, uncomplicated; Z79.82 Long term (current) use of aspirin; I25.2 Old myocardial infarction; Z79.899 Other long term (current) drug therapy
CPT/HCPCS: 36415; 36430; 71046; 80048; 80053; 80307; 81001; 84484; 85025; 85027; 85610; 85730; 86850; 86900; 86901; 86920; 93005; 93010; 99406; G0378; C9113; J2704; J7030; P9016